=== PATIENT | female | born 1945 | race Caucasian/White ===

== ENCOUNTER → 2020-11-03 | Outpatient (CLI) | payer MEDICARE ==
--- NOTE | 2020-11-03 16:09 | US ---
EXAMINATION TYPE: US thyroid st tissue head/neck DATE OF EXAM: 11/03/2020 COMPARISON: Thyroid ultrasound April 05, 2014 CLINICAL HISTORY: E04.1 thyroid nodule. GLAND SIZE: Right Lobe: 3.8 x 1.5 x 1.3 cm Overall Parenchyma: homogenous Left Lobe: 3.6 x 1.1 x 1.6 cm Overall Parenchyma: homogeneous Isthmus Thickness: 0.2 cm NODULES RIGHT: # of nodules measured on right: 0 LEFT: # of nodules measured on left: 2 1. 0.4 X 0.3 x 0.4 cm cystic or almost completely cystic, anechoic nodule, which is wider than tall , with smooth margins, without echogenic foci. Prior size: 0.5 x 0.3 x 0.4 cm 2. 0.5 X 0.3 x 0.6 cm solid or almost completely solid, isoechoic nodule, which is wider than tall, with ill-defined margins, without echogenic foci. Prior size: 0.7 x 0.4 x 0.5 cm ISTHMUS: # of nodules measured in the isthmus: 0 Bilateral neck scanned, no evidence of lymphadenopathy. Stable homogeneous small size thyroid with 2 stable subcentimeter left thyroid nodules. IMPRESSION: As above. No new or enlarging greater than 1 cm nodules.
== END | disposition home or self-care (01) ==
LOC: RADUSWWP 15:33
PROVIDERS: ATTEND Family Medicine
DX: E04.2 Nontoxic multinodular goiter (principal)
CPT/HCPCS: 76536

== ENCOUNTER → 2020-12-01 | Outpatient (CLI) | payer MEDICARE ==
--- NOTE | 2020-12-03 11:29 | MM ---
Reason for exam: screening (asymptomatic). Last mammogram was performed 7 months ago. History: Patient is postmenopausal. Family history of breast cancer in mother at age 50. Took hormonal contraceptives for 1 year 6 months. Physical Findings: A clinical breast exam by your physician is recommended on an annual basis and results should be correlated with mammographic findings. MG 3D Screening Mammo W/Cad Bilateral CC and MLO view(s) were taken. Prior study comparison: April 21, 2020, mammogram, performed at [facility]. March 26, 2020, mammogram, performed at [facility]. March 13, 2019, mammogram, performed at [facility]. There are scattered fibroglandular densities. There is chronic nodularity in the right breast. No significant changes when compared with prior studies. ASSESSMENT: Benign, BI-RAD 2 RECOMMENDATION: Routine screening mammogram of both breasts in 1 year.
== END | disposition home or self-care (01) ==
LOC: RADMAMWWP 10:27
PROVIDERS: ATTEND Family Medicine
DX: Z12.31 Encounter for screening mammogram for malignant neoplasm of breast (principal)
CPT/HCPCS: 77063; 77067

== ENCOUNTER 2022-01-25 12:42 | Observation (INO) | payer MEDICARE ==
[2022-01-25] MEDS ORDERED: methylPREDNISolone SOD SUCCI 125 MG/2 ML VIAL IV STA (13:52)
[2022-01-25] MEDS ORDERED: ALBUTEROL NEBULIZED 2.5 MG/3 ML INHALATION STA (13:52)
[2022-01-25] MEDS ORDERED: IPRATROPIUM 0.5 MG/2.5 ML NEBU INHALATION STA (13:52)
[2022-01-25] MEDS ORDERED: SODIUM CHLORIDE 0.9% 500 ML 500 ML IV STA (13:52)
--- NOTE | 2022-01-25 14:04 | XR ---
EXAMINATION TYPE: XR chest 2V DATE OF EXAM: 01/25/2022 COMPARISON: NONE TECHNIQUE: PA and lateral views submitted. HISTORY: Cough FINDINGS: The lungs are clear and there is no pneumothorax, pleural effusion, or focal pneumonia. Somewhat co arsened interstitium. Heart size normal. No overt failure. Hypertrophic and degenerative changes spin e. Hyperinflation suggests COPD there is mild diffuse osteopenia. Atherosclerotic change aorta. Vague nodular density right upper lobe. IMPRESSION: 1. COPD correlate for chronic interstitial lung disease. Vague area of nodularity right upper lobe co uld be on the basis of superimposed structures. Short-term follow-up PA and lateral views of the ches t recommended. If the finding fails to resolve then consider CT scan of the chest.
[2022-01-25 14:35] LABS: Basophils % (A) 1 %; Eosinophils # (A) 0.1 k/uL (0-0.7); Eosinophils % (A) 2 %; HCT 48.4 % (34.0-46.0); HGB 16.3 gm/dL (11.4-16.0); Lymphocytes # (A) 1.4 k/uL (1.0-4.8); Lymphocytes % (A) 27 %; MCH 32.1 pg (25.0-35.0); MCHC 33.7 g/dL (31.0-37.0); MCV 95.4 fL (80.0-100.0); Mean Platelet Volume 7.4; Monocytes # (A) 0.4 k/uL (0-1.0); Monocytes % (A) 8 %; Neutrophils # (A) 3.2 k/uL (1.3-7.7); Neutrophils % (A) 60 %; Platelet Count 210 k/uL (150-450); RBC 5.07 m/uL (3.80-5.40); RDW 12.1 % (11.5-15.5); WBC 5.3 k/uL (3.8-10.6)
[2022-01-25 14:48] LABS: INR 0.9 (<1.2); Partial Thromboplastin Time 25.5 sec (22.0-30.0); Prothrombin Time 10.3 sec (9.0-12.0)
[2022-01-25 14:52] LABS: ALT 29 U/L (4-34); AST 36 U/L (14-36); African American GFR (CKD) >90 (>60 ml/min/1.73 sqM); Albumin 4.4 g/dL (3.5-5.0); Alkaline Phosphatase 50 U/L (38-126); Anion Gap 8 mmol/L; Blood Urea Nitrogen 10 mg/dL (7-17); Calcium 9.2 mg/dL (8.4-10.2); Carbon Dioxide 33 mmol/L (22-30); Chloride 97 mmol/L (98-107); Glucose 138 mg/dL (74-99); Magnesium 1.9 mg/dL (1.6-2.3); Non-African American GFR(CKD) >90 (>60 ml/min/1.73 sqM); Potassium 3.7 mmol/L (3.5-5.1); Sodium 138 mmol/L (137-145); Total Bilirubin 0.9 mg/dL (0.2-1.3); Total Protein 7.3 g/dL (6.3-8.2)
--- NOTE | 2022-01-25 15:38 | ED ---
General Adult HPI - General Chief complaint: Shortness of Breath Stated complaint: Fever/High BP Time Seen by Provider: 01/25/22 13:27 Source: patient, RN notes reviewed, old records reviewed Mode of arrival: ambulatory - History of Present Illness Initial comments: 76-year-old female presenting with 4 days of cough, congestion, sore throat. She does have some chest pain associated with her cough. No measured fevers. She has come in contact with several individuals who had similar illness. She had a coronavirus test at urgent care as well as chest x-ray. She has remote history of tobacco use, quit several years ago. - Related Data Allergies Allergy/AdvReac Type Severity Reaction Status Date / Time Iodinated Contrast Media Allergy Swelling Verified 01/25/22 14:38 [Iodinated Contrast Media - IV Dye] levofloxacin [From Levaquin] Allergy Swelling Verified 01/25/22 14:38 lisinopril Allergy Cough Verified 01/25/22 14:38 Review of Systems ROS Statement: Those systems with pertinent positive or pertinent negative responses have been documented in the HPI. ROS Other: All systems not noted in ROS Statement are negative. Past Medical History Past Medical History: COPD, Hypertension History of Any Multi-Drug Resistant Organisms: None Reported Past Surgical History: Hysterectomy Past Psychological History: No Psychological Hx Reported Smoking Status: Former smoker Past Alcohol Use History: None Reported Past Drug Use History: None Reported General Exam General appearance: alert, in no apparent distress Head exam: Present: atraumatic, normocephalic Eye exam: Present: normal appearance, PERRL ENT exam: Present: mucous membranes dry Neck exam: Present: normal inspection. Absent: tenderness, meningismus Respiratory exam: Present: wheezes, decreased breath sounds. Absent: respiratory distress Cardiovascular Exam: Present: regular rate, normal rhythm GI/Abdominal exam: Present: soft. Absent: distended, tenderness, guarding, rebound Extremities exam: Present: normal inspection, normal capillary refill. Absent: pedal edema, calf tenderness Neurological exam: Present: alert, oriented X3, CN II-XII intact. Absent: motor sensory deficit, reflexes normal Psychiatric exam: Present: normal affect, normal mood Skin exam: Present: warm, dry, intact. Absent: cyanosis, diaphoretic Course Vital Signs 01/25/22 01/25/22 01/25/22 13:17 14:24 14:30 Temperature 97.8 F Pulse Rate 72 77 Respiratory 20 16 28 H Rate Blood Pressure 173/82 184/77 O2 Sat by Pulse 92 L 92 L Oximetry 01/25/22 01/25/22 01/25/22 14:43 14:55 15:00 Temperature Pulse Rate 75 76 71 Respiratory 25 H Rate Blood Pressure 198/98 O2 Sat by Pulse 88 L Oximetry 01/25/22 15:59 Temperature Pulse Rate Respiratory Rate Blood Pressure O2 Sat by Pulse 93 L Oximetry EKG Findings - EKG Comments: EKG Findings:: EKG: Sinus rhythm, low voltage, rate of 60, NV interval 146, QRS duration 85, QTC [address] segment elevation. Medical Decision Making - Medical Decision Making 76-year-old female presents for evaluation of increased cough and dyspnea over the past several days. There was initial concern for either coronal virus or influenza. She does test negative for both of these viruses. Chest x-ray s howing COPD. She has a remote history of tobacco use. Laboratory testing is unremarkable. Patient does require supplemental oxygen in the emergency department. She will be admitted for COPD exacerbation. Case discussed with [facility]. - Lab Data Result diagrams: 01/25/22 14:10 01/25/22 14:10 Lab Results 01/25/22 01/25/22 01/25/22 Range/Units 13:27 13:27 14:10 WBC 5.3 (3.8-10.6) k/uL RBC 5.07 (3.80-5.40) m/uL Hgb 16.3 H (11.4-16.0) gm/dL Hct 48.4 H (34.0-46.0) % MCV 95.4 (80.0-100.0) fL MCH 32.1 (25.0-35.0) pg MCHC 33.7 (31.0-37.0) g/dL RDW 12.1 (11.5-15.5) % Plt Count 210 (150-450) k/uL MPV 7.4 Neutrophils % 60 % Lymphocytes % 27 % Monocytes % 8 % Eosinophils % 2 % Basophils % 1 % Neutrophils # 3.2 (1.3-7.7) k/uL Lymphocytes # 1.4 (1.0-4.8) k/uL Monocytes # 0.4 (0-1.0) k/uL Eosinophils # 0.1 (0-0.7) k/uL Basophils # 0.0 (0-0.2) k/uL PT (9.0-12.0) sec INR (<1.2) APTT (22.0-30.0) sec D-Dimer (<0.60) mg/L FEU Sodium (137-145) mmol/L Potassium (3.5-5.1) mmol/L Chloride (98-107) mmol/L Carbon Dioxide (22-30) mmol/L Anion Gap mmol/L BUN (7-17) mg/dL Creatinine (0.52-1.04) mg/dL Est GFR (CKD-EPI)AfAm (>60 ml/min/1.73 sqM) Est GFR (CKD-EPI)NonAf (>60 ml/min/1.73 sqM) Glucose (74-99) mg/dL Plasma Lactic Acid Dameon (0.7-2.0) mmol/L Calcium (8.4-10.2) mg/dL Magnesium (1.6-2.3) mg/dL Total Bilirubin (0.2-1.3) mg/dL AST (14-36) U/L ALT (4-34) U/L Alkaline Phosphatase (38-126) U/L Troponin I (0.000-0.034) ng/mL Total Protein (6.3-8.2) g/dL Albumin (3.5-5.0) g/dL Coronavirus (PCR) Not Detected (Not Detectd) Influenza Type A RNA Not Detected (Not Detectd) Influenza Type B (PCR) Not Detected (Not Detectd) 01/25/22 01/25/22 01/25/22 Range/Units 14:10 14:10 14:10 WBC (3.8-10.6) k/uL RBC (3.80-5.40) m/uL Hgb (11.4-16.0) gm/dL Hct (34.0-46.0) % MCV (80.0-100.0) fL MCH (25.0-35.0) pg MCHC (31.0-37.0) g/dL RDW (11.5-15.5) % Plt Count (150-450) k/uL MPV Neutrophils % % Lymphocytes % % Monocytes % % Eosinophils % % Basophils % % Neutrophils # (1.3-7.7) k/uL Lymphocytes # (1.0-4.8) k/uL Monocytes # (0-1.0) k/uL Eosinophils # (0-0.7) k/uL Basophils # (0-0.2) k/uL PT 10.3 (9.0-12.0) sec INR 0.9 (<1.2) APTT 25.5 (22.0-30.0) sec D-Dimer (<0.60) mg/L FEU Sodium 138 (137-145) mmol/L Potassium 3.7 (3.5-5.1) mmol/L Chloride 97 L (98-107) mmol/L Carbon Dioxide 33 H (22-30) mmol/L Anion Gap 8 mmol/L BUN 10 (7-17) mg/dL Creatinine 0.50 L (0.52-1.04) mg/dL Est GFR (CKD-EPI)AfAm >90 (>60 ml/min/1.73 sqM) Est GFR (CKD-EPI)NonAf >90 (>60 ml/min/1.73 sqM) Glucose 138 H (74-99) mg/dL Plasma Lactic Acid Dameon 0.8 (0.7-2.0) mmol/L Calcium 9.2 (8.4-10.2) mg/dL Magnesium 1.9 (1.6-2.3) mg/dL Total Bilirubin 0.9 (0.2-1.3) mg/dL AST 36 (14-36) U/L ALT 29 (4-34) U/L Alkaline Phosphatase 50 (38-126) U/L Troponin I (0.000-0.034) ng/mL Total Protein 7.3 (6.3-8.2) g/dL Albumin 4.4 (3.5-5.0) g/dL Coronavirus (PCR) (Not Detectd) Influenza Type A RNA (Not Detectd) Influenza Type B (PCR) (Not Detectd) 01/25/22 01/25/22 Range/Units 14:10 14:10 WBC (3.8-10.6) k/uL RBC (3.80-5.40) m/uL Hgb (11.4-16.0) gm/dL Hct (34.0-46.0) % MCV (80.0-100.0) fL MCH (25.0-35.0) pg MCHC (31.0-37.0) g/dL RDW (11.5-15.5) % Plt Count (150-450) k/uL MPV Neutrophils % % Lymphocytes % % Monocytes % % Eosinophils % % Basophils % % Neutrophils # (1.3-7.7) k/uL Lymphocytes # (1.0-4.8) k/uL Monocytes # (0-1.0) k/uL Eosinophils # (0-0.7) k/uL Basophils # (0-0.2) k/uL PT (9.0-12.0) sec INR (<1.2) APTT (22.0-30.0) sec D-Dimer 0.46 (<0.60) mg/L FEU Sodium (137-145) mmol/L Potassium (3.5-5.1) mmol/L Chloride (98-107) mmol/L Carbon Dioxide (22-30) mmol/L Anion Gap mmol/L BUN (7-17) mg/dL Creatinine (0.52-1.04) mg/dL Est GFR (CKD-EPI)AfAm (>60 ml/min/1.73 sqM) Est GFR (CKD-EPI)NonAf (>60 ml/min/1.73 sqM) Glucose (74-99) mg/dL Plasma Lactic Acid Dameon (0.7-2.0) mmol/L Calcium (8.4-10.2) mg/dL Magnesium (1.6-2.3) mg/dL Total Bilirubin (0.2-1.3) mg/dL AST (14-36) U/L ALT (4-34) U/L Alkaline Phosphatase (38-126) U/L Troponin I <0.012 (0.000-0.034) ng/mL Total Protein (6.3-8.2) g/dL Albumin (3.5-5.0) g/dL Coronavirus (PCR) (Not Detectd) Influenza Type A RNA (Not Detectd) Influenza Type B (PCR) (Not Detectd) Disposition Clinical Impression: Acute exacerbation of chronic obstructive pulmonary disease Disposition: ADMITTED IP TO THIS HOSP Condition: Stable Is patient prescribed a controlled substance at d/c from ED?: No Referrals: Arpita Cardenas MD [Primary Care Provider] - 1-2 days Decision to Admit Reason: Admit from EC Decision Date: 01/25/22 Decision Time: 16:40
[2022-01-25] MEDS ORDERED: AZITHROMYCIN 500 MG TAB PO SCH (17:00)
[2022-01-25] MEDS: methylPREDNISolone SOD SUCCI 40 MG/ML 1 ML VIAL IV SCH (17:34)
[2022-01-25] MEDS: IPRATROPIUM-ALBUTEROL 3 ML NEB INHALATION SCH ×2 (19:12)
[2022-01-25 22:29] LABS: Glucose,Whole Blood 317 mg/dL (75-99)
[2022-01-25] MEDS ORDERED: cloNIDine HCL 0.2 MG TAB PO STA (23:18)
[2022-01-25] MEDS: ACETAMINOPHEN TAB 325 MG TAB PO PRN (23:34)
[2022-01-26] MEDS ORDERED: BENZOCAINE/MENTHOL LOZENG 1 EACH LOZENGE MUCOUS MEM ONE (00:05)
[2022-01-26 07:30] LABS: Glucose,Whole Blood 332 mg/dL (75-99)
[2022-01-26] MEDS: IPRATROPIUM-ALBUTEROL 3 ML NEB INHALATION SCH ×2 (08:21→11:40)
[2022-01-26 08:22] VITALS: RESP 18
[2022-01-26] MEDS: methylPREDNISolone SOD SUCCI 40 MG/ML 1 ML VIAL IV SCH (08:38)
[2022-01-26] MEDS ORDERED: BENZONATATE 100 MG CAP PO PRN (09:48)
[2022-01-26] MEDS ORDERED: BENZOCAINE/MENTHOL LOZENG 1 EACH LOZENGE MUCOUS MEM PRN (10:15)
[2022-01-26 11:43] LABS: Glucose,Whole Blood 269 mg/dL (75-99)
[2022-01-26] MEDS ORDERED: INSULIN ASPART (NovoLOG) 100 UNIT/ML VIAL SQ SCH (12:30)
--- NOTE | 2022-01-26 13:39 | P.PRLE ---
THIS HISTORY AND PHYSICAL WAS COMPLETED ON 01/25/2022 -H&P ORIGINAL SHOWS UP UNDER RADIOLOGY. History of Present Illness Chief Complaint: Shortness of breath and feeling tired Patient is a 76-year-old female with a past medical history significant for type 2 diabetes mellitus on oral medication, essential hypertension and former smoker that presents to the hospital complaining of lethargic and short of breath. She apparently started a new job at [employer] a few weeks ago which he first contributed towards. Today she had a fever 101 approximately 4:00 with some subjective chills however denies any nausea, vomiting, abdominal discomfort or diarrhea. Patient is a former smoker for approximately 20-25 years smoked half a pack a day. She denies any significant phlegm production and has not been diagnosed with COPD in the past however she states multiple doctors have told her that. No formal diagnosis has been made per pulmonary function tests. In the emergency department she was found to be hypotensive 198/98, saturations 93% on 2 L nasal cannula. CBC and BMP reviewed unremarkable except for hemoglobin 16.3, and bicarb 33. Medications and Allergies Allergies Allergy/AdvReac Type Severity Reaction Status Date / Time Iodinated Contrast Media Allergy Swelling Verified 01/25/22 14:38 [Iodinated Contrast Media - IV Dye] levofloxacin [From Levaquin] Allergy Swelling Verified 01/25/22 14:38 lisinopril Allergy Cough Verified 01/25/22 14:38 Physical Exam Gen. patient is awake alert oriented 3 currently wearing 2 L nasal cannula Cardio normal S1/S2 no murmurs appreciated Respiratory wheezing appreciated mild bilaterally on expiration mainly, bilateral air entry Abdomen soft, nontender Extremities no pitting edema Psych patient is normal mood Assessment and Plan Assessment: Assessment: #1 acute hypoxic respiratory distress secondary to underlying possible COPD? #2 nodularity on x-ray noted follow-up needed #3 diabetes mellitus [id number]-[id number] type II #4 essential hypertension Plan: -Admit to medicine for close monitoring -Aspiration/fall precaution -Continue with IV methylprednisolone 40 daily -Scheduled to 3 times a day DuoNeb's -Influenza and: Negative -Chest x-ray noted radiologist recommending PA/lateral view to evaluate for possible nodularity? -DVT prophylaxis Lovenox daily -Disposition despite discharge once respiratory distress improves
[2022-01-26] MEDS: ACETAMINOPHEN TAB 325 MG TAB PO PRN (14:19)
[2022-01-26 14:39] VITALS: BP 153/76; PULSE 89; TEMP 98.1
--- NOTE | 2022-01-26 15:51 | P.DS ---
Providers Date of admission: 01/25/22 16:43 Expected date of discharge: 01/26/22 Attending physician: Royer Briceño MD Primary care physician: Arpita Cardenas Hospital Course: Discharge Diagnosis: Acute hypoxic and hypercapnic respiratory distress secondary to COPD exacerbation, Patient will need to follow-up with pulmonary for PFTs as well as further evaluation of right upper lobe nodularity noted on x-ray. Patient discharged home with prednisone, Ventolin inhaler, and Zithromax. Right upper lobe nodularity, patient to follow-up outpatient with pulmonary for further evaluation Hypertension Type II dfy-[id number] diabetes mellitus Long-standing history of nicotine use Hospital Course: Patient is a very pleasant 76-year-old female with a past medical history of hypertension, type II aye-ghsswpc-ohtniteaj diabetes mellitus, and long-standing history of nicotine use. She presented to the hospital with a chief complaint of feeling generalized lethargy/weakness and having increased shortness of breath after starting her new job at [employer] a few weeks ago. She was seen and fully evaluated in the emergency department. Lab work was completed. CBC revealing polycythemia with hemoglobin of 16.3 and hematocrit of 48.4 and BMP revealing hypercarbia with CO2 of 33. Influenza A and influenza B and coronavirus PCR is all negative. Troponin less than 0.012. D-dimer 0.46. Chest x-ray was completed revealing hyperinflation consistent with COPD and vague area of nodularity to right upper lobe. EKG showing normal sinus rhythm at 60 bpm with no noted T-wave or ST abnormalities. Patient was admitted under our services and monitored throughout the night. Patient was started on steroids and breathing treatments. By morning patient reports feeling completely better at this time. Patient on room air with SpO2 of 94%. Upon ambulation throughout entire unit the lowest patient's oxygen saturation dropped to was 89% on room air. Patient is medically stable for discharge at this time. Patient was instructed she will need to follow up with her PCP as well as pulmonology upon discharge. Patient will need to follow-up with pulmonary for PFTs as well as further evaluation of right upper lobe nodularity noted on x- ray. Physical examination: Patient seen and examined at bedside. Vital signs reviewed and stable. General: Nontoxic, no distress and appears stated age. Derm: Skin warm and dry, normal coloration for ethnicity. Head: Atraumatic, normocephalic and symmetric. Eyes: EOMs intact, no lid lag, and anicteric sclera Mouth: no lip lesions, mucus membranes moist Cardiovascular: regular rate and rhythm with normal S1S2, no murmur, positive posterior tibial pulses bilaterally, and cap refill < 2 seconds. Lungs: Respirations even, regular, and unlabored on room air. Lungs CTA bilaterally with the exception of soft diffuse expiratory wheezes. There is no rales, rhonchi, or crackles present. No accessory muscle usage. Abdominal: soft, nontender to palpation, no guarding, no appreciable organomegaly Ext: ROM intact. No gross muscle atrophy, no edema, no contractures Neuro: Speech clear, face symmetrical and CN II-XII grossly intact with no noted focal neuro deficits Psych: Alert and oriented to person, place, time, and situation. Appropriate and pleasant affect. A total of 39 minutes of time were spent preparing this complex discharge summary. Patient Condition at Discharge: Stable Plan - Discharge Summary Discharge Rx Participant: No New Discharge Prescriptions: New predniSONE 50 mg PO DAILY 5 Days #5 tablet Albuterol Inhaler [Ventolin Hfa Inhaler] 2 puff INHALATION RT-QID PRN #8 gm PRN Reason: Shortness Of Breath Or Wheezing Azithromycin [Zithromax] 500 mg PO DAILY@1700 4 Days #4 tab Continue Cholecalciferol [Vitamin D3 (25 Mcg = 1000 Iu)] 25 mcg PO DAILY Ascorbic Acid/Collagen Hydr [Collagen Plus Vit C Capsule] 1 cap PO DAILY hydroCHLOROthiazide [Hydrodiuril] 25 mg PO DAILY carvediloL [Coreg] 6.25 mg PO BID Glimepiride [Amaryl] 4 mg PO AC-BID Benzonatate [Benzonatate Perle] 200 mg PO TID PRN PRN Reason: Cough Cyanocobalamin (Vitamin B-12) [Vitamin B-12] 1,000 mcg PO DAILY 1 tab PO DAILY Ibuprofen [Motrin Ib] 400 mg PO HS PRN PRN Reason: Pain Immun Support 1 tab PO TID Discontinued Amoxic-Pot Clav 875-125Mg [Augmentin 875-125] 1 tab PO Q12HR Discharge Medication List 1 tab PO DAILY 01/25/22 [History] Ascorbic Acid/Collagen Hydr [Collagen Plus Vit C Capsule] 1 cap PO DAILY 01/25/22 [History] Benzonatate [Benzonatate Perle] 200 mg PO TID PRN 01/25/22 [History] Cholecalciferol [Vitamin D3 (25 Mcg = 1000 Iu)] 25 mcg PO DAILY 01/25/22 [History] Cyanocobalamin (Vitamin B-12) [Vitamin B-12] 1,000 mcg PO DAILY 01/25/22 [History] Glimepiride [Amaryl] 4 mg PO AC-BID 01/25/22 [History] Ibuprofen [Motrin Ib] 400 mg PO HS PRN 01/25/22 [History] Immun Support 1 tab PO TID 01/25/22 [History] carvediloL [Coreg] 6.25 mg PO BID 01/25/22 [History] hydroCHLOROthiazide [Hydrodiuril] 25 mg PO DAILY 01/25/22 [History] Albuterol Inhaler [Ventolin Hfa Inhaler] 2 puff INHALATION RT-QID PRN #8 gm 01/26/22 [Rx] Azithromycin [Zithromax] 500 mg PO DAILY@1700 4 Days #4 tab 01/26/22 [Rx] predniSONE 50 mg PO DAILY 5 Days #5 tablet 01/26/22 [Rx] Follow up Appointment(s)/Referral(s): Arpita Cardenas MD [Primary Care Provider] - 1-2 days Bryan Shields MD [STAFF PHYSICIAN] - 02/21/22 2:30 pm (Will need to schedule follow-up appointment for pulmonary function tests and further evaluation) Patient Instructions/Handouts: COPD (Chronic Obstructive Pulmonary Disease) (DC), How Your Lungs Work (DC), Chronic Lung Disease and Infection Prevention (DC) Activity/Diet/Wound Care/Special Instructions: Activity: As tolerated. Take breaks as needed. Diet: Heart healthy and carb consistent diet. Avoid salts, or foods with hidden salts such as canned or boxed foods and frozen dinners. Extra salt makes your heart work harder and traps the fluid in your body for longer. Special Instructions: Take all of your medications as directed and remember to keep all of your doctor's appointments and follow-up as needed. You will need to follow-up with Dr. Shields, grain inspector for further evaluation of your likely underlying COPD. You will need pulmonary function tests and have further evaluation of the possible nodule noted on x-ray. Thank you for allowing us to participate in your care, it was truly a pleasure having you for our patient!!! Discharge Disposition: HOME SELF-CARE
[2022-01-26] MEDS ORDERED: carvediloL 6.25 MG TAB PO SCH (17:30)
[2022-01-27] MEDS ORDERED: CAPSU PO SCH (09:00)
[2022-01-27] MEDS ORDERED: COLLAGEN HYDR PO SCH (09:00)
[2022-01-27] MEDS ORDERED: hydroCHLOROthiazide 25 MG TAB PO SCH (09:00)
[2022-01-27] MEDS ORDERED: CHOLECALCIFEROL 25 MCG (1000 IU) TABLET PO SCH (09:00)
[2022-01-27] MEDS ORDERED: [UNRECOGNIZED DRUG - OTHER] PO SCH (09:00)
[2022-01-27] MEDS ORDERED: CYANOCOBALAMIN 500 MCG TAB PO SCH (09:00)
[2022-01-27] MEDS ORDERED: ASCORBIC ACID PO SCH (09:00)
== END 2022-01-26 16:37 | disposition home or self-care (01) ==
LOC: EC 12:42 → 6NMEDSUR 16:43
PROVIDERS: ADMIT Internal Medicine; ATTEND Internal Medicine
DX: J44.1 Chronic obstructive pulmonary disease with (acute) exacerbation (principal); I10 Essential (primary) hypertension; E11.9 Type 2 diabetes mellitus without complications; D75.1 Secondary polycythemia; R91.8 Other nonspecific abnormal finding of lung field; Z20.822 Contact with and (suspected) exposure to COVID-19; Z79.84 Long term (current) use of oral hypoglycemic drugs; Z79.899 Other long term (current) drug therapy; Z88.1 Allergy status to other antibiotic agents; Z91.041 Radiographic dye allergy status; Z88.8 Allergy status to other drugs, medicaments and biological substances; Z87.891 Personal history of nicotine dependence; Z90.710 Acquired absence of both cervix and uterus
CPT/HCPCS: 96376 ×2; 96361; 96374; 99285; 36415; 94640 ×4; 93005; 85379; 80053; 83605; 83735; 84484; 85025; 85610; 85730; 87502; 87635; 71046; G0378 ×2; J2920 ×2; J2930

== ENCOUNTER → 2022-01-27 | Outpatient (CLI) | payer MEDICARE ==
--- NOTE | 2022-01-25 16:57 | P.HPIM ---
History of Present Illness Chief Complaint: Shortness of breath and feeling tired Patient is a 76-year-old female with a past medical history significant for type 2 diabetes mellitus on oral medication, essential hypertension and former smoker that presents to the hospital complaining of lethargic and short of breath. She apparently started a new job at [email or web address] a few weeks ago which he first contributed towards. Today she had a fever 101 approximately 4:00 with some subjective chills however denies any nausea, vomiting, abdominal discomfort or diarrhea. Patient is a former smoker for approximately 20-25 years smoked half a pack a day. She denies any significant phlegm production and has not been diagnosed with COPD in the past however she states multiple doctors have told her that. No formal diagnosis has been made per pulmonary function tests. In the emergency department she was found to be hypotensive 198/98, saturations 93% on 2 L nasal cannula. CBC and BMP reviewed unremarkable except for hemoglobin 16.3, and bicarb 33. Medications and Allergies Allergies Allergy/AdvReac Type Severity Reaction Status Date / Time Iodinated Contrast Media Allergy Swelling Verified 01/25/22 14:38 [Iodinated Contrast Media - IV Dye] levofloxacin [From Levaquin] Allergy Swelling Verified 01/25/22 14:38 lisinopril Allergy Cough Verified 01/25/22 14:38 Physical Exam Gen. patient is awake alert oriented 3 currently wearing 2 L nasal cannula Cardio normal S1/S2 no murmurs appreciated Respiratory wheezing appreciated mild bilaterally on expiration mainly, bilateral air entry Abdomen soft, nontender Extremities no pitting edema Psych patient is normal mood Assessment and Plan Assessment: Assessment: #1 acute hypoxic respiratory distress secondary to underlying possible COPD? #2 nodularity on x-ray noted follow-up needed #3 diabetes mellitus eor-xmfoikv-jprzwlucl type II #4 essential hypertension Plan: -Admit to medicine for close monitoring -Aspiration/fall precaution -Continue with IV methylprednisolone 40 daily -Scheduled to 3 times a day DuoNeb's -Influenza and: Negative -Chest x-ray noted radiologist recommending PA/lateral view to evaluate for possible nodularity? -DVT prophylaxis Lovenox daily -Disposition despite discharge once respiratory distress improves
--- NOTE | 2022-01-30 11:39 | MM ---
Reason for exam: screening (asymptomatic). Last mammogram was performed 1 year and 2 months ago. History: Patient is postmenopausal. Family history of breast cancer in mother at age 50. Took hormonal contraceptives for 1 year 6 months. Physical Findings: A clinical breast exam by your physician is recommended on an annual basis and results should be correlated with mammographic findings. MG 3D Screening Mammo W/Cad Bilateral CC and MLO view(s) were taken. Prior study comparison: December 01, 2020, bilateral MG 3d screening mammo w/cad. April 21, 2020, mammogram, performed at [facility]. There are scattered fibroglandular densities. Stable benign calcifications. There is no discrete abnormality. No significant changes when compared with prior studies. ASSESSMENT: Benign, BI-RAD 2 RECOMMENDATION: Routine screening mammogram of both breasts in 1 year.
== END | disposition home or self-care (01) ==
LOC: RADMAMWWP 11:36
PROVIDERS: ATTEND Family Medicine
DX: Z12.31 Encounter for screening mammogram for malignant neoplasm of breast (principal)
CPT/HCPCS: 77063; 77067

== ENCOUNTER 2022-01-29 08:03 | Observation (INO) | payer MEDICARE ==
[2022-01-29 08:08] VITALS: RESP 18
[2022-01-29] MEDS ORDERED: IPRATROPIUM-ALBUTEROL 3 ML NEB INHALATION STA ×2 (08:32→09:24)
[2022-01-29] MEDS ORDERED: predniSONE 20 MG TAB PO STA (08:32)
[2022-01-29 08:41] LABS: Basophils # (A) 0.1 k/uL (0-0.2); Basophils % (A) 1 %; Eosinophils # (A) 0.1 k/uL (0-0.7); Eosinophils % (A) 1 %; HCT 44.7 % (34.0-46.0); Lymphocytes % (A) 27 %; MCHC 33.5 g/dL (31.0-37.0); MCV 95.7 fL (80.0-100.0); Mean Platelet Volume 7.6; Monocytes # (A) 0.7 k/uL (0-1.0); Monocytes % (A) 9 %; Neutrophils # (A) 4.6 k/uL (1.3-7.7); Neutrophils % (A) 62 %; Platelet Count 274 k/uL (150-450); RBC 4.67 m/uL (3.80-5.40); RDW 12.1 % (11.5-15.5); WBC 7.4 k/uL (3.8-10.6)
[2022-01-29 08:51] LABS: Partial Thromboplastin Time 22.2 sec (22.0-30.0); Prothrombin Time 10.7 sec (9.0-12.0)
[2022-01-29 08:58] LABS: ALT 23 U/L (4-34); AST 25 U/L (14-36); African American GFR (CKD) >90 (>60 ml/min/1.73 sqM); Alkaline Phosphatase 49 U/L (38-126); Anion Gap 7 mmol/L; Blood Urea Nitrogen 14 mg/dL (7-17); Calcium 9.3 mg/dL (8.4-10.2); Carbon Dioxide 34 mmol/L (22-30); Chloride 97 mmol/L (98-107); Glucose 190 mg/dL (74-99); Magnesium 1.8 mg/dL (1.6-2.3); Non-African American GFR(CKD) >90 (>60 ml/min/1.73 sqM); Potassium 3.1 mmol/L (3.5-5.1); Sodium 138 mmol/L (137-145)
--- NOTE | 2022-01-29 09:17 | XR ---
EXAMINATION TYPE: XR chest 2V DATE OF EXAM: 01/29/2022 COMPARISON: Chest x-ray 4 days ago HISTORY: History of hypertension with shortness of breath TECHNIQUE: Frontal and lateral views of the chest are obtained. FINDINGS: There are chronic parenchymal changes bilaterally without suspicious new focal air space o pacity, pleural effusion, or pneumothorax seen. The cardiac silhouette size is stable and within nor mal limits. The osseous structures are intact. Possible spiculated nodule right upper lung. IMPRESSION: Chronic emphysematous change without acute pulmonary process. Cannot exclude underlying spiculated nodule similar to prior. Nonemergent CT follow-up advised. No significant change from prio r.
--- NOTE | 2022-01-29 11:26 | CT ---
EXAMINATION TYPE: CT chest wo con DATE OF EXAM: 01/29/2022 COMPARISON: Chest x-ray earlier today HISTORY: Dyspnea CT DLP: 395.7 mGycm. Automated Exposure Control for Dose Reduction was Utilized. TECHNIQUE: CT scan of the thorax is performed without IV contrast. FINDINGS: LUNGS: Mild to moderate underlying emphysematous changer with 1.3 x 0.7 cm scarlike opacity in the ri ght upper lobe corresponding to area of x-ray concern axial image 19. No pleural effusion or pneumoth orax seen bilaterally. MEDIASTINUM: Lack of IV contrast is noted to limit evaluation for mediastinal and especially hilar a denopathy. There are no definitive greater than 1 cm mediastinal lymph nodes. No cardiomegaly or pe ricardial effusion is seen. Moderate to severe three-vessel coronary artery calcification. OTHER: There is near 1.0 cm low dense lesion in the hepatic dome image 44 favors benign thin-walled c yst, similar lesion seen anteriorly axial image 49. IMPRESSION: Mild to borderline moderate underlying emphysematous change without suspicious acute pulm onary process. Area of concern on x-rays could reflect focal scarring versus spiculated nodule. Follo w-up PET/CT is advised to further evaluate if old outside x-ray or CT cannot be obtained to document stability.
[2022-01-29] MEDS ORDERED: hydrALAZINE HCL 20 MG/ML 1 ML VIAL IVP STA (11:53)
[2022-01-29] MEDS ORDERED: POTASSIUM CHLORIDE ER 20 MEQ TAB.ER PO STA (11:54)
[2022-01-29] MEDS ORDERED: ONDANSETRON 4 MG/2 ML VIAL IVP STA (12:44)
--- NOTE | 2022-01-29 12:44 | ED ---
General Adult HPI - General Chief complaint: Shortness of Breath Stated complaint: High BP, SOB Time Seen by Provider: 01/29/22 08:17 Source: patient, RN notes reviewed, old records reviewed Mode of arrival: ambulatory Limitations: no limitations - History of Present Illness Initial comments: Patient is a 76-year-old female with past medical history remarkable for COPD, diabetes, hypertension who presents to [facility] complaining of continued shortness of breath as well as hypoxia home. Patient took her pulse ox at home and is found to be an 85%. Recently was discharged for a COPD exacerbation. He is not requiring oxygen previously. States she is continuing to have some wheezing as well as upper respiratory symptoms. She is concerned that she may have COVID-19. She denies any sick contacts. She is fully vaccinated with a booster. Was vaccinated for influenza as well. Endorses a productive cough of greenish mucus. Denies any lower extremity swelling. Denies any history of heart failure. Denies any orthopnea. Endorses exertional dyspnea. He was discharged home, however states she feels she did not improve. Presents over concern for worsening respiratory symptoms as well as hypoxia. - Related Data Home Medications Medication Instructions Recorded Confirmed 1 tab PO DAILY 01/25/22 01/29/22 Ascorbic Acid/Collagen Hydr 1 cap PO DAILY 01/25/22 01/29/22 [Collagen Plus Vit C Capsule] Benzonatate [Benzonatate Perle] 200 mg PO TID PRN 01/25/22 01/29/22 Cholecalciferol [Vitamin D3 (25 25 mcg PO DAILY 01/25/22 01/29/22 Mcg = 1000 Iu)] Cyanocobalamin (Vitamin B-12) 1,000 mcg PO DAILY 01/25/22 01/29/22 [Vitamin B-12] Glimepiride [Amaryl] 4 mg PO AC-BID 01/25/22 01/29/22 Ibuprofen [Motrin Ib] 400 mg PO HS PRN 01/25/22 01/29/22 carvediloL [Coreg] 6.25 mg PO BID 01/25/22 01/29/22 hydroCHLOROthiazide [Hydrodiuril] 25 mg PO DAILY 01/25/22 01/29/22 Azithromycin [Zithromax] 500 mg PO DAILY 01/29/22 01/29/22 Immune Support 1 tab PO TID 01/29/22 01/29/22 Previous Rx's Medication Instructions Recorded Albuterol Inhaler [Ventolin Hfa 2 puff INHALATION RT-QID PRN #8 gm 01/26/22 Inhaler] predniSONE 50 mg PO DAILY 5 Days #5 tablet 01/26/22 Allergies Allergy/AdvReac Type Severity Reaction Status Date / Time Iodinated Contrast Media Allergy Swelling Verified 01/29/22 13:37 [Iodinated Contrast Media - IV Dye] levofloxacin [From Levaquin] Allergy Swelling Verified 01/29/22 13:37 lisinopril Allergy Cough Verified 01/29/22 13:37 Review of Systems ROS Statement: Those systems with pertinent positive or pertinent negative responses have been documented in the HPI. Review of Systems: CONST: Denies fever EYES: Denies blurry vision ENT: Endorses nasal congestion C/V: Denies Chest pain RESP: Endorses shortness of breath GI: Denies abdominal pain : Denies dysuria SKIN: Denies rash. MSK: Denies joint pain. NEURO: Denies headache ROS Other: All systems not noted in ROS Statement are negative. Past Medical History Past Medical History: COPD, Diabetes Mellitus, Hypertension Additional Past Medical History / Comment(s): macular degeneration History of Any Multi-Drug Resistant Organisms: None Reported Past Surgical History: Hysterectomy Past Psychological History: No Psychological Hx Reported Smoking Status: Former smoker Past Alcohol Use History: None Reported Past Drug Use History: None Reported - Past Family History Mother Family Medical History: Cancer Additional Family Medical History / Comment(s): breast, uterine, thyroid cancer. Father History Unknown: Yes General Exam - General Exam Comments Initial Comments: General: Appears in no acute distress. HEAD: Normal with no signs of head trauma. EYES: PERRLA, EOMI, conjunctiva normal, no discharge. ENT: Hearing grossly intact, normal oropharynx. RESPIRATORY: Mild and expiratory wheezing bilaterally. No increased work of breathing. Hypoxic on room air to 88%. C/V: Regular rate and rhythm. S1 and S2 auscultated, no edema, peripheral pulses 2+ and intact throughout ABD: Abd is soft, nontender, nondistended EXT: Normal range of motion, no obvious deformity SKIN: No rashes or lesions observed on exposed skin. NEURO: Alert and oriented 4. Limitations: no limitations Course Vital Signs 0401/29/22 01/29/22 08:04 08:31 08:48 Temperature 97.1 F L Pulse Rate 69 68 70 Respiratory 18 18 18 Rate Blood Pressure 195/81 196/80 O2 Sat by Pulse 91 L 93 L Oximetry 01/29/22 01/29/22 01/29/22 08:57 09:00 10:00 Temperature Pulse Rate 70 67 68 Respiratory 18 22 22 Rate Blood Pressure 196/80 189/90 O2 Sat by Pulse 96 96 Oximetry 01/29/22 01/29/22 01/29/22 10:08 10:18 11:00 Temperature Pulse Rate 68 70 61 Respiratory 18 18 18 Rate Blood Pressure 197/103 O2 Sat by Pulse 92 L Oximetry 01/29/22 13:20 Temperature Pulse Rate 78 Respiratory Rate Blood Pressure 195/104 O2 Sat by Pulse 96 Oximetry Medical Decision Making - Medical Decision Making Based on the patient's presentation physical exam, I'm concerned for COPD exacerbation but other possible etiology for dyspnea at this time. We'll obtain a cardiopulmonary workup in addition to Covid and influenza swabs. She was in agreement this plan. She appears to be having a mild COPD exacerbation and will be given steroids as well as breathing treatments. Patient was in agreement this plan. Patient is mildly hypertensive but does also worked up and she'll be observed and treated if she continues to be hypertensive. EKG showed no signs of acute ischemia. Laboratory studies were remarkable for a d-dimer within normal limits. Carbon dioxide is mildly elevated 34. Patient is hypokalemic at 3.1 which is replenished. Troponin is negative. BNP is within normal limits. Covid and influenza negative. Chest x-ray shows chronic emphysematous changes without acute pulmonary process. There appears to be a small nodule that is unchanged from prior chest x-ray. As the patient remains mildly hypoxic, despite improved wheezing bilaterally, I did recommend that we obtain a CT chest with contrast and she was in agreement this plan. CT chest revealed emphysematous changes without suspicious acute pulmonary process. There is scarring versus possible spiculated nodule. I discussed with the patient the findings of the CT, including the spiculated nodule. She exposed understanding. Due to her hypoxia on room air that is new, I would like to admit her to the hospital. She was in agreement this plan. I did speak with the admitting physician, Dr. Ayon who accepted the patient. Patient was admitted in stable condition. We'll continue to treat for COPD. - Lab Data Result diagrams: 01/29/22 08:36 01/29/22 08:36 Lab Results 01/29/22 01/29/22 01/29/22 Range/Units 08:36 08:36 08:36 WBC 7.4 (3.8-10.6) k/uL RBC 4.67 (3.80-5.40) m/uL Hgb 15.0 (11.4-16.0) gm/dL Hct 44.7 (34.0-46.0) % MCV 95.7 (80.0-100.0) fL MCH 32.0 (25.0-35.0) pg MCHC 33.5 (31.0-37.0) g/dL RDW 12.1 (11.5-15.5) % Plt Count 274 (150-450) k/uL MPV 7.6 Neutrophils % 62 % Lymphocytes % 27 % Monocytes % 9 % Eosinophils % 1 % Basophils % 1 % Neutrophils # 4.6 (1.3-7.7) k/uL Lymphocytes # 2.0 (1.0-4.8) k/uL Monocytes # 0.7 (0-1.0) k/uL Eosinophils # 0.1 (0-0.7) k/uL Basophils # 0.1 (0-0.2) k/uL PT 10.7 (9.0-12.0) sec INR 1.0 (<1.2) APTT 22.2 (22.0-30.0) sec D-Dimer (<0.60) mg/L FEU Sodium 138 (137-145) mmol/L Potassium 3.1 L (3.5-5.1) mmol/L Chloride 97 L (98-107) mmol/L Carbon Dioxide 34 H (22-30) mmol/L Anion Gap 7 mmol/L BUN 14 (7-17) mg/dL Creatinine 0.59 (0.52-1.04) mg/dL Est GFR (CKD-EPI)AfAm >90 (>60 ml/min/1.73 sqM) Est GFR (CKD-EPI)NonAf >90 (>60 ml/min/1.73 sqM) Glucose 190 H (74-99) mg/dL Calcium 9.3 (8.4-10.2) mg/dL Magnesium 1.8 (1.6-2.3) mg/dL Total Bilirubin 1.0 (0.2-1.3) mg/dL AST 25 (14-36) U/L ALT 23 (4-34) U/L Alkaline Phosphatase 49 (38-126) U/L Troponin I (0.000-0.034) ng/mL NT-Pro-B Natriuret Pep pg/mL Total Protein 7.0 (6.3-8.2) g/dL Albumin 4.0 (3.5-5.0) g/dL Coronavirus (PCR) (Not Detectd) Influenza Type A RNA (Not Detectd) Influenza Type B (PCR) (Not Detectd) 01/29/22 01/29/22 01/29/22 Range/Units 08:36 08:36 08:36 WBC (3.8-10.6) k/uL RBC (3.80-5.40) m/uL Hgb (11.4-16.0) gm/dL Hct (34.0-46.0) % MCV (80.0-100.0) fL MCH (25.0-35.0) pg MCHC (31.0-37.0) g/dL RDW (11.5-15.5) % Plt Count (150-450) k/uL MPV Neutrophils % % Lymphocytes % % Monocytes % % Eosinophils % % Basophils % % Neutrophils # (1.3-7.7) k/uL Lymphocytes # (1.0-4.8) k/uL Monocytes # (0-1.0) k/uL Eosinophils # (0-0.7) k/uL Basophils # (0-0.2) k/uL PT (9.0-12.0) sec INR (<1.2) APTT (22.0-30.0) sec D-Dimer 0.33 (<0.60) mg/L FEU Sodium (137-145) mmol/L Potassium (3.5-5.1) mmol/L Chloride (98-107) mmol/L Carbon Dioxide (22-30) mmol/L Anion Gap mmol/L BUN (7-17) mg/dL Creatinine (0.52-1.04) mg/dL Est GFR (CKD-EPI)AfAm (>60 ml/min/1.73 sqM) Est GFR (CKD-EPI)NonAf (>60 ml/min/1.73 sqM) Glucose (74-99) mg/dL Calcium (8.4-10.2) mg/dL Magnesium (1.6-2.3) mg/dL Total Bilirubin (0.2-1.3) mg/dL AST (14-36) U/L ALT (4-34) U/L Alkaline Phosphatase (38-126) U/L Troponin I <0.012 (0.000-0.034) ng/mL NT-Pro-B Natriuret Pep 330 pg/mL Total Protein (6.3-8.2) g/dL Albumin (3.5-5.0) g/dL Coronavirus (PCR) (Not Detectd) Influenza Type A RNA (Not Detectd) Influenza Type B (PCR) (Not Detectd) 01/29/22 01/29/22 Range/Units 08:41 08:41 WBC (3.8-10.6) k/uL RBC (3.80-5.40) m/uL Hgb (11.4-16.0) gm/dL Hct (34.0-46.0) % MCV (80.0-100.0) fL MCH (25.0-35.0) pg MCHC (31.0-37.0) g/dL RDW (11.5-15.5) % Plt Count (150-450) k/uL MPV Neutrophils % % Lymphocytes % % Monocytes % % Eosinophils % % Basophils % % Neutrophils # (1.3-7.7) k/uL Lymphocytes # (1.0-4.8) k/uL Monocytes # (0-1.0) k/uL Eosinophils # (0-0.7) k/uL Basophils # (0-0.2) k/uL PT (9.0-12.0) sec INR (<1.2) APTT (22.0-30.0) sec D-Dimer (<0.60) mg/L FEU Sodium (137-145) mmol/L Potassium (3.5-5.1) mmol/L Chloride (98-107) mmol/L Carbon Dioxide (22-30) mmol/L Anion Gap mmol/L BUN (7-17) mg/dL Creatinine (0.52-1.04) mg/dL Est GFR (CKD-EPI)AfAm (>60 ml/min/1.73 sqM) Est GFR (CKD-EPI)NonAf (>60 ml/min/1.73 sqM) Glucose (74-99) mg/dL Calcium (8.4-10.2) mg/dL Magnesium (1.6-2.3) mg/dL Total Bilirubin (0.2-1.3) mg/dL AST (14-36) U/L ALT (4-34) U/L Alkaline Phosphatase (38-126) U/L Troponin I (0.000-0.034) ng/mL NT-Pro-B Natriuret Pep pg/mL Total Protein (6.3-8.2) g/dL Albumin (3.5-5.0) g/dL Coronavirus (PCR) Not Detected (Not Detectd) Influenza Type A RNA Not Detected (Not Detectd) Influenza Type B (PCR) Not Detected (Not Detectd) - EKG Data -: EKG Interpreted by Me EKG Comments: 12-lead Electrocardiogram Interpretation Note EKG was reviewed and interpreted by myself. 12-lead ECG performed at 0814 is interpreted by me as revealing normal sinus rhythm at a rate of 79 beats per minute. [place] is normal. GA intervals 174 ms, QRS duration is 80 ms, QTc is 380 ms.. There were no ST or T wave abnormalities to suggest myocardial ischemia or injury. R wave progression across the precordium was satisfactory. By my interpr etation this EKG is non-diagnostic for acute ischemia. Disposition Clinical Impression: COPD exacerbation, Hypoxia, Pulmonary nodule Disposition: ADMITTED IP TO THIS HOSP Condition: Stable Referrals: Arpita Cardenas MD [Primary Care Provider] - 1-2 days Time of Disposition: 11:35
[2022-01-29] MEDS ORDERED: NALOXONE 0.4 MG/ML 1 ML VIAL IV PRN (12:45)
[2022-01-29] MEDS: IPRATROPIUM-ALBUTEROL 3 ML NEB INHALATION SCH ×3 (15:11→19:11)
[2022-01-29] MEDS ORDERED: ACETAMINOPHEN TAB 325 MG TAB PO PRN (17:19)
--- NOTE | 2022-01-29 17:26 | P.HPIM ---
History of Present Illness H&P Date: 01/29/22 Chief Complaint: SOB Patient is a 76-year-old female with PMH of diabetes mellitus, hypertension presents the ED for shortness of breath and wheezing. Patient reports starting a new job at [employer] over the past 2 weeks. On Sunday she started to experience chest congestion, shortness of breath with exertion along with wheezing. Her symptoms worsened over Sunday and Sunday. This morning, she measured an O2 saturation of 85%. She has also attempted to use nebulized treatments which have not helped much. She did go see her PCP who prescribed azithromycin and prednisone. When her symptoms did not improve, this prompted her to come to the ED. She denies any headache, lower extremity edema, nausea or vomiting, fever or chills, cough, chest pain, palpitations, changes in urination or bowel habits. No changes in appetite or weight. She denies any dizziness, nu mbness/weakness/tingling of extremities. In the ED, she was noted to be hypoxic requiring 2 L nasal cannula to maintain O2 saturation in the low to mid 90s. CBC was unremarkable. CMP showed potassium of 3.1, chloride of 97, bicarb of 34 and glucose of 190. Troponin was less than 0.012 with EKG showing no ST changes. BNP was 330. COVID-19 negative. Flu negative. Chest x-ray showed emphysematous changes. CT chest showed possible scarring versus spiculated nodule. Patient is admitted for COPD exacerbation. Her review of systems is negative except those discussed above. General: [non toxic], [no distress], [appears at stated age] Derm: [warm], [dry] Head: [atraumatic], [normocephalic], [symmetric] Eyes: [EOMI], [no lid lag], [anicteric sclera] Mouth: [no lip lesion], [mucus membranes moist] Cardiovascular: [S1S2 reg], [no murmur] Lungs: [Decreased breath sounds bilateral], [no rhonchi, no rales] , [no accessory muscle use] Abdominal: [soft], [ nontender to palpation], [no guarding], [no appreciable organomegaly] Ext: [no gross muscle atrophy], [no edema], [no contractures] Neuro: [ CN II-XI grossly intact], [no focal neuro deficits] Psych: [Alert], [oriented], [appropriate affect] #Acute hypoxic respiratory failure #COPD exacerbation #Pulmonary nodule #Hypokalemia #Diabetes mellitus with hyperglycemia Chronic conditions: Hypertension Patient presents with O2 saturation less than 88% requiring supplemental O2. She is currently on 2 L nasal cannula. She will be started on DuoNeb scheduled and as needed for shortness of breath and wheezing. Solu-Medrol has been s tarted as well. She has never been formally diagnosed with COPD or asthma. She has a 20 year history of smoking but quit in 2000. She does have a pulmonology appointment in February with Dr. Shields. She will need further workup of her pulmonary nodule. She can follow this up with Dr. Shields with her appointment in February. Her potassium has been replaced with 20 mEq by mouth. BMP will be repeated tomorrow morning. Low-dose insulin sliding scale will be started along with Accu-Cheks 4 times a day and hypoglycemic precautions. We will restart her home medication. Patient names her daughter Denver decision maker if she can make decision for herself. Patient would like to be full code. Lovenox will be used for DVT prophylaxis. Past Medical History Past Medical History: COPD, Diabetes Mellitus, Hypertension Additional Past Medical History / Comment(s): macular degeneration History of Any Multi-Drug Resistant Organisms: None Reported Past Surgical History: Hysterectomy Past Psychological History: No Psychological Hx Reported Smoking Status: Former smoker Past Alcohol Use History: None Reported Past Drug Use History: None Reported - Past Family History Mother Family Medical History: Cancer Additional Family Medical History / Comment(s): breast, uterine, thyroid cancer. Father History Unknown: Yes Medications and Allergies Home Medications Medication Instructions Recorded Confirmed Type 3-6-9 1 tab PO DAILY 01/25/22 01/29/22 History Ascorbic Acid/Collagen Hydr 1 cap PO DAILY 01/25/22 01/29/22 History [Collagen Plus Vit C Capsule] Benzonatate [Benzonatate Perle] 200 mg PO TID PRN 01/25/22 01/29/22 History Cholecalciferol [Vitamin D3 (25 25 mcg PO DAILY 01/25/22 01/29/22 History Mcg = 1000 Iu)] Cyanocobalamin (Vitamin B-12) 1,000 mcg PO DAILY 01/25/22 01/29/22 History [Vitamin B-12] Glimepiride [Amaryl] 4 mg PO AC-BID 01/25/22 01/29/22 History Ibuprofen [Motrin Ib] 400 mg PO HS PRN 01/25/22 01/29/22 History carvediloL [Coreg] 6.25 mg PO BID 01/25/22 01/29/22 History hydroCHLOROthiazide [Hydrodiuril] 25 mg PO DAILY 01/25/22 01/29/22 History Albuterol Inhaler [Ventolin Hfa 2 puff INHALATION RT-QID PRN #8 gm 01/26/22 01/29/22 Rx Inhaler] predniSONE 50 mg PO DAILY 5 Days #5 tablet 01/26/22 01/29/22 Rx Azithromycin [Zithromax] 500 mg PO DAILY 01/29/22 01/29/22 History Immune Support 1 tab PO TID 01/29/22 01/29/22 History Allergies Allergy/AdvReac Type Severity Reaction Status Date / Time Iodinated Contrast Media Allergy Swelling Verified 01/29/22 13:37 [Iodinated Contrast Media - IV Dye] levofloxacin [From Levaquin] Allergy Swelling Verified 01/29/22 13:37 lisinopril Allergy Cough Verified 01/29/22 13:37 Physical Exam Vitals: Vital Signs Temp Pulse Resp BP Pulse Ox 01/29/22 15:45 80 18 178/87 95 01/29/22 15:19 90 18 01/29/22 15:11 93 18 01/29/22 13:20 78 195/104 96 01/29/22 11:00 61 18 197/103 92 L 01/29/22 10:18 70 18 01/29/22 10:08 68 18 01/29/22 10:00 68 22 189/90 96 01/29/22 09:00 67 22 196/80 96 01/29/22 08:57 70 18 01/29/22 08:48 70 18 01/29/22 08:31 68 18 196/80 93 L 01/29/22 08:04 97.1 F L 69 18 195/81 91 L Intake and Output 01/29/22 01/29/22 01/29/22 06:59 14:59 22:59 Other: Weight 82.554 kg 82.554 kg Results CBC & Chem 7: 01/29/22 08:36 01/29/22 08:36 Labs: Abnormal Lab Results - Last 24 Hours (Table) 01/29/22 Range/Units 08:36 Potassium 3.1 L (3.5-5.1) mmol/L Chloride 97 L (98-107) mmol/L Carbon Dioxide 34 H (22-30) mmol/L Glucose 190 H (74-99) mg/dL Thrombosis Risk Factor Assmnt - Choose All That Apply Any of the Below Risk Factors Present?: Yes Each Factor Represents 1 point: Abnormal pulmonary function (COPD) Other Risk Factors: Yes Each Risk Factor Represents 3 Points: Age 75 years or older Thrombosis Risk Factor Assessment Total Risk Factor Score: 4 Thrombosis Risk Factor Assessment Level: Moderate Risk
[2022-01-29 17:34] LABS: Glucose,Whole Blood 307 mg/dL (75-99)
[2022-01-29] MEDS: methylPREDNISolone SOD SUCCI 40 MG/ML 1 ML VIAL IV SCH (17:48)
[2022-01-29] MEDS: GLIMEPIRIDE 4 MG TAB PO SCH (17:48)
[2022-01-29] MEDS: carvediloL 6.25 MG TAB PO SCH (17:48)
[2022-01-29] MEDS ORDERED: IPRATROPIUM-ALBUTEROL 3 ML NEB INHALATION PRN (19:05)
[2022-01-29 21:34] LABS: Glucose,Whole Blood 293 mg/dL (75-99)
[2022-01-29] MEDS: INSULIN ASPART (NovoLOG) 100 UNIT/ML VIAL SQ SCH (22:08)
[2022-01-30] MEDS: methylPREDNISolone SOD SUCCI 40 MG/ML 1 ML VIAL IV SCH ×2 (00:29→08:48)
[2022-01-30 07:12] LABS: Glucose,Whole Blood 217 mg/dL (75-99)
[2022-01-30] MEDS ORDERED: INSULIN ASPART (NovoLOG) 100 UNIT/ML VIAL SQ SCH (07:30)
[2022-01-30 07:37] VITALS: BP 117/93; TEMP 97.6
[2022-01-30] MEDS: IPRATROPIUM-ALBUTEROL 3 ML NEB INHALATION SCH ×2 (07:38→11:04)
[2022-01-30] MEDS: carvediloL 6.25 MG TAB PO SCH (08:43)
[2022-01-30] MEDS: INSULIN ASPART (NovoLOG) 100 UNIT/ML VIAL SQ SCH (08:43)
[2022-01-30] MEDS: GLIMEPIRIDE 4 MG TAB PO SCH (08:43)
[2022-01-30] MEDS ORDERED: hydroCHLOROthiazide 25 MG TAB PO SCH (09:00)
[2022-01-30] MEDS ORDERED: ENOXAPARIN 40 MG/0.4 ML SYRINGE SQ SCH (09:00)
[2022-01-30 09:13] LABS: Basophils # (A) 0.01 X 10*3/uL (0.00-0.10); Basophils % (A) 0.1 %; Eosinophils # (A) 0 X 10*3/uL (0.04-0.35); Eosinophils % (A) 0 %; HCT 42.3 % (37.2-46.3); Immature Grans, Automated 1.7 %; Lymphocytes # (A) 0.84 X 10*3/uL (0.90-5.00); MCH 31.7 pg (27.0-32.0); MCHC 33.1 g/dL (32.0-37.0); MCV 95.9 fL (80.0-97.0); Mean Platelet Volume 10.3 fL (9.5-12.2); Monocytes # (A) 0.37 X 10*3/uL (0.20-1.00); Monocytes % (A) 4.4 %; NRBC Per 100 WBC 0 /100 WBCS (0.0-0.0); Neutrophils # (A) 7.02 X 10*3/uL (1.80-7.70); Neutrophils % (A) 83.8 %; Platelet Count 287 X 10*3/uL (140-440); RBC 4.41 X 10*6/uL (4.10-5.20); RDW 11.9 % (11.5-14.5); WBC 8.38 X 10*3/uL (4.50-10.00)
[2022-01-30 09:36] LABS: African American GFR (CKD) 105.2 (60.0-200.0); Anion Gap 11.8 mmol/L (10.00-18.00); BUN/Creat Ratio 23.02 Ratio (12.00-20.00); Blood Urea Nitrogen 13.1 mg/dL (9.0-27.0); Calcium 9.3 mg/dL (8.7-10.3); Carbon Dioxide 30.3 mmol/L (20.0-27.5); Non-African American GFR(CKD) 90.7 (60.0-200.0); Potassium 4.4 mmol/L (3.5-5.5)
[2022-01-30 11:06] VITALS: PULSE 86
[2022-01-30 11:50] LABS: Glucose,Whole Blood 223 mg/dL (75-99)
--- NOTE | 2022-01-30 18:11 | P.DS ---
Providers Date of admission: 01/29/22 12:45 Expected date of discharge: 01/30/22 Attending physician: Amna Ayon MD [facility] Course: Discharge Diagnosis: Acute hypoxic and hypercapnic respiratory distress secondary to COPD exacerbation, Patient discharged home on home oxygen and will need to follow-up with pulmonology as scheduled for further evaluation and PFTs as well as further evaluation of previously noted right upper lobe nodularity noted on x-ray. Patient discharged home with prednisone taper and to continue ventolin inhaler as needed for SOB and wheezing. Right upper lobe spiculated nodularity, patient to follow-up outpatient with pulmonary for further evaluation Hypertension Type II [id number] diabetes mellitus Long-standing history of nicotine use Hospital Course: Patient is a very pleasant 76-year-old female with a past medical history of hypertension, type II [id number] diabetes mellitus, COPD, and long- standing history of nicotine use. She presented to the hospital with a chief complaint of shortness of breath and hypoxia at home status post recent hospitalization for COPD exacerbation 01/25/22 through 01/26/22. She was seen and fully evaluated. Chest x-ray completed revealing chronic emphysematous changes as well as spiculated nodule in right upper lobe similar to prior examination. CT chest completed revealing [id number] borderline underlying emphysematous changes negative for acute cardiopulmonary process, area of concern reported on x-rays possibly reflecting focal scarring versus spiculated nodule recommending further evaluation outpatient for possible PET scan. EKG revealing normal sinus rhythm at 79 bpm. Patient was started on IV steroids and breathing treatments. The patient reported full resolution of shortness of breath. An ambulatory home oxygen evaluation was completed, patient was found to be hypoxic with ambulation with SpO2 dropping down to 85% on room air with exertion from 90% on room air at rest. Patient requiring 2 L O2 via nasal cannula to maintain SpO2 of 91% with ambulation. Arrangements have been made for patient to be discharged with home oxygen. patient being discharged home on home oxygen with prednisone taper and to follow up with sports physiologist as previously scheduled for evaluation of COPD as well as concerns of spiculated nodule versus scarring of right upper lobe. Physical examination: Patient seen and examined at bedside. Vital signs reviewed and stable. General: Nontoxic, no distress and appears stated age. Derm: Skin warm and dry, normal coloration for ethnicity. Head: Atraumatic, normocephalic and symmetric. Eyes: EOMs intact, no lid lag, and anicteric sclera Mouth: no lip lesions, mucus membranes moist Cardiovascular: regular rate and rhythm with normal S1S2, no murmur, positive posterior tibial pulses bilaterally, and cap refill < 2 seconds. Lungs: Respirations even, regular, and unlabored on room air. Lungs slightly diminished. There is no wheezes, rales, rhonchi, or crackles present. No accessory muscle usage. Abdominal: soft, nontender to palpation, no guarding, no appreciable organomegaly Ext: ROM intact. No gross muscle atrophy, no edema, no contractures Neuro: Speech clear, face symmetrical and CN II-XII grossly intact with no noted focal neuro deficits Psych: Alert and oriented to person, place, time, and situation. Appropriate and pleasant affect. A total of 41 minutes of time were spent preparing this complex discharge summary. Patient Condition at Discharge: Stable Plan - Discharge Summary New Discharge Prescriptions: New predniSONE See Taper PO DIRECTED 12 Days #30 tab Continue Cholecalciferol [Vitamin D3 (25 Mcg = 1000 Iu)] 25 mcg PO DAILY Ascorbic Acid/Collagen Hydr [Collagen Plus Vit C Capsule] 1 cap PO DAILY hydroCHLOROthiazide [Hydrodiuril] 25 mg PO DAILY carvediloL [Coreg] 6.25 mg PO BID Glimepiride [Amaryl] 4 mg PO AC-BID Benzonatate [Benzonatate Perle] 200 mg PO TID PRN PRN Reason: Cough Cyanocobalamin (Vitamin B-12) [Vitamin B-12] 1,000 mcg PO DAILY 1 tab PO DAILY Albuterol Inhaler [Ventolin Hfa Inhaler] 2 puff INHALATION RT-QID PRN #8 gm PRN Reason: Shortness Of Breath Or Wheezing Ibuprofen [Motrin Ib] 400 mg PO HS PRN PRN Reason: Pain Immune Support 1 tab PO TID Discontinued predniSONE 50 mg PO DAILY 5 Days #5 tablet Azithromycin [Zithromax] 500 mg PO DAILY Discharge Medication List 1 tab PO DAILY 01/25/22 [History] Ascorbic Acid/Collagen Hydr [Collagen Plus Vit C Capsule] 1 cap PO DAILY 01/25/22 [History] Benzonatate [Benzonatate Perle] 200 mg PO TID PRN 04/06/22 [History] Cholecalciferol [Vitamin D3 (25 Mcg = 1000 Iu)] 25 mcg PO DAILY 01/25/22 [History] Cyanocobalamin (Vitamin B-12) [Vitamin B-12] 1,000 mcg PO DAILY 01/25/22 [History] Glimepiride [Amaryl] 4 mg PO AC-BID 01/25/22 [History] Ibuprofen [Motrin Ib] 400 mg PO HS PRN 01/25/22 [History] carvediloL [Coreg] 6.25 mg PO BID 01/25/22 [History] hydroCHLOROthiazide [Hydrodiuril] 25 mg PO DAILY 01/25/22 [History] Albuterol Inhaler [Ventolin Hfa Inhaler] 2 puff INHALATION RT-QID PRN #8 gm 01/26/22 [Rx] Immune Support 1 tab PO TID 01/29/22 [History] predniSONE See Taper PO DIRECTED 12 Days #30 tab 01/30/22 [Rx] Follow up Appointment(s)/Referral(s): [facility] [NON-STAFF] - As Needed Arpita Cardenas MD [Primary Care Provider] - 1-2 days Bryan Shields MD [STAFF PHYSICIAN] - 1 Week (follow up on 02/21/22 as sched uled) Patient Instructions/Handouts: COPD (Chronic Obstructive Pulmonary Disease) (DC) Activity/Diet/Wound Care/Special Instructions: Activity: As tolerated. Take breaks as needed. Diet: Heart healthy and carb consistent diet. Avoid salts, or foods with hidden salts such as canned or boxed foods and frozen dinners. Extra salt makes your heart work harder and traps the fluid in your body for longer. Special Instructions: Take all of your medications as directed and remember to keep all of your doctor's appointments and follow-up as needed. You are being discharged home on home oxygen for your COPD, it is important to have lung function evaluated by sports physiologist as we discussed. Thank you for allowing us to participate in your care, it was truly a pleasure having you for our patient!!! Discharge Disposition: HOME SELF-CARE
== END 2022-01-30 12:01 | disposition home or self-care (01) ==
LOC: EC 08:03 → 6NMEDSUR 12:45
PROVIDERS: ADMIT Family Medicine; ATTEND Family Medicine
DX: J44.1 Chronic obstructive pulmonary disease with (acute) exacerbation (principal); J96.01 Acute respiratory failure with hypoxia; E87.6 Hypokalemia; I10 Essential (primary) hypertension; R91.1 Solitary pulmonary nodule; E11.65 Type 2 diabetes mellitus with hyperglycemia; H35.30 Unspecified macular degeneration; Z20.822 Contact with and (suspected) exposure to COVID-19; Z79.84 Long term (current) use of oral hypoglycemic drugs; Z79.899 Other long term (current) drug therapy; Z91.048 Other nonmedicinal substance allergy status; Z88.8 Allergy status to other drugs, medicaments and biological substances; Z87.891 Personal history of nicotine dependence; Z90.710 Acquired absence of both cervix and uterus; Z71.3 Dietary counseling and surveillance; Z80.3 Family history of malignant neoplasm of breast; Z80.8 Family history of malignant neoplasm of other organs or systems
CPT/HCPCS: 99285; 96376; 96372; 96375 ×2; 96374; 36415; 94640 ×4; 93005; 85379; 83880; 80053; 80048; 83735; 84484; 85025 ×2; 85610; 85730; 87502; 87635; 71046; 71250; G0378 ×2; J0360; J2920 ×2; J2405; J1650; J7512

== ENCOUNTER → 2023-01-31 | Outpatient (CLI) | payer MEDICARE ==
--- NOTE | 2023-01-31 12:57 | BD ---
EXAMINATION TYPE: Axial Bone Density DATE OF EXAM: 01/31/2023 CLINICAL HISTORY: 77 years old Female. ICD-10 CODE: Z78.0 Post menopausal w/o HRT Height: 64.25 Weight: 188 FRAX RISK QUESTIONS: Family History (Parent hip fracture): no History of Fracture in Adulthood: yes, rt ankle 2008 Secondary Osteoporosis: no Rheumatoid Arthritis: no RISK FACTORS HISTORY OF: Family History of Osteoporosis: no Active: yes Diet low in dairy products/other sources of calcium: no Postmenopausal woman: yes Lost more than 2 inches in height since high school: yes, 2.75 inches Frequent falls: no Poor Health: yes MEDICATIONS: Additional Medications: yes vit d, multi vit with immune, eye meds. EXAM MEASUREMENTS: Bone mineral densitometry was performed using the [employer] System. Bone mineral density as measured about the Lumbar spine is: ----- L1-L4(G/cm2): 1.203 T Score Values are as follows: ----- L1: 0.1 ----- L2: -0.7 ----- L3: 1.0 ----- L4: 0.2 ----- L1-L4: 0.2 Z Score Values are as follows: ----- L1: 1.2 ----- L2: 0.5 ----- L3: 2.1 ----- L4: 1.3 ----- L1-L4: 1.3 Bone mineral density baseline Bone mineral density about the R hip (g/cm2): 0.996 Bone mineral density about the L hip (g/cm2): 0.936 T Score values are as follows: -----R Neck: -0.8 -----L Neck: -0.9 -----R Total: -0.1 -----L Total: -0.6 Z Score values are as follows: -----R Neck: 0.8 -----L Neck: 0.7 -----R Total: 1.3 -----L Total: 0.8 Bone mineral density baseline FRAX%s: The graph provided illustrates a 14.8% chance for a major osteoporotic fx and a 2.1% chance f or the hips probability for fx in 10 years time. IMPRESSION: Normal (Values between +1 and -1 indicate normal bone mass). Consider repeating this study in 5 year s or sooner if there is some new clinical indication. NOTE: T-SCORE=SD OF THE YOUNG ADULT MEAN.
--- NOTE | 2023-02-01 17:15 | MM ---
Reason for Exam: Screening (asymptomatic). Last screening mammogram was performed 12 month(s) ago. Patient History: Menarche at age 14. First Full-Term at age 21. Left ovary removed at age 43. Right ovary removed at age 43. Hysterectomy at age 43. Postmenopausal. Hormonal Contraceptives for 1 year, 6 months. Mother had breast cancer, age 50. Risk Values: Linh 5 year model risk: 3.4%. NCI Lifetime model risk: 6.8%. Prior Study Comparison: 04/21/2020 Screening Mammogram, [facility]. 12/01/2020 Bilateral Screening Mammogram, [facility]. 01/27/2022 Bilateral Screening Mammogram, [facility]. Tissue Density: There are scattered fibroglandular densities. Findings: Analyzed By CAD. Pattern appears symmetrical and stable. Chronic nodularity is within the right breast. No suspicious groups of microcalcifications, spiculated or lobular masses, architectural distortion or other secondary signs of malignancy are mammographically apparent. Overall Assessment: Benign, BI-RAD 2 Management: Screening Mammogram of both breasts in 1 year. A negative mammogram report should not preclude additional follow up of suspicious palpable abnormalities. Patient should continue monthly self breast exam. A clinical breast exam by your physician is recommended on an annual basis and results should be correlated with mammographic findings. Electronically signed and approved by: Vladislav Cortez D.O. Radiologis
== END | disposition home or self-care (01) ==
LOC: RADMAMWWP 10:06
PROVIDERS: ATTEND Family Medicine
DX: Z12.31 Encounter for screening mammogram for malignant neoplasm of breast (principal); Z78.0 Asymptomatic menopausal state; Z80.3 Family history of malignant neoplasm of breast
CPT/HCPCS: 77063; 77067; 77080

== ENCOUNTER 2023-10-24 01:12 | Observation (INO) | payer MEDICARE ==
[2023-10-24] MEDS ORDERED: ALBUTEROL HFA INHALER INHALATION STA (01:47)
[2023-10-24] MEDS ORDERED: methylPREDNISolone SOD SUCCI 125 MG/2 ML VIAL IV STA (01:48)
[2023-10-24 02:46] LABS: ALT 23 U/L (4-34); AST 31 U/L (14-36); African American GFR (CKD) >90 (>60 ml/min/1.73 sqM); Albumin 3.7 g/dL (3.5-5.0); Alkaline Phosphatase 66 U/L (38-126); Anion Gap 9 mmol/L; Blood Urea Nitrogen 11 mg/dL (7-17); Carbon Dioxide 35 mmol/L (22-30); Chloride 85 mmol/L (98-107); Glucose 187 mg/dL (74-99); Magnesium 1.8 mg/dL (1.6-2.3); Non-African American GFR(CKD) >90 (>60 ml/min/1.73 sqM); Potassium 3.2 mmol/L (3.5-5.1); Sodium 129 mmol/L (137-145); Total Bilirubin 0.9 mg/dL (0.2-1.3); Total Protein 6.3 g/dL (6.3-8.2)
[2023-10-24 03:01] LABS: INR 0.9 (<1.2); Partial Thromboplastin Time 22.8 sec (22.0-30.0); Prothrombin Time 10.3 sec (10.0-12.5)
[2023-10-24] MEDS ORDERED: SODIUM CHLORIDE 0.9% 1,000 ML IV STA ×2 (03:11→03:18)
--- NOTE | 2023-10-24 03:19 | ED ---
General Adult HPI - General Chief complaint: Shortness of Breath Stated complaint: COVID, Shortness of Breath Time Seen by Provider: 10/24/23 01:27 Source: patient, EMS Mode of arrival: EMS - History of Present Illness Initial comments: 78-year-old female with past medical history significant for COPD presented to the ED with a chief complaint of dyspnea. Patient states for the past week has had cough, congestion, shortness of breath. States that she was seen earlier in the week and was diagnosed positive with Covid. States she was initially given a Z-Sampson which patient reports did nothing for her. Presented again to her PCP who provided her a prescription for Augmentin. States despite these medications, still feels short of breath. The presentation to the ED for fu rther evaluation. Denies chest pain. - Related Data Home Medications Medication Instructions Recorded Confirmed 1 tab PO DAILY 01/25/22 01/29/22 Ascorbic Acid/Collagen Hydr 1 cap PO DAILY 01/25/22 01/29/22 [Collagen Plus Vit C Capsule] Benzonatate [Tessalon Perle] 200 mg PO TID PRN 01/25/22 01/29/22 Cholecalciferol [Vitamin D3 (25 25 mcg PO DAILY 01/25/22 01/29/22 Mcg = 1000 Iu)] Cyanocobalamin (Vitamin B-12) 1,000 mcg PO DAILY 01/25/22 01/29/22 [Vitamin B-12] Glimepiride [Amaryl] 4 mg PO AC-BID 01/25/22 01/29/22 Ibuprofen [Motrin Ib] 400 mg PO HS PRN 01/25/22 01/29/22 carvediloL [Coreg] 6.25 mg PO BID 01/25/22 01/29/22 hydroCHLOROthiazide [Hydrodiuril] 25 mg PO DAILY 01/25/22 01/29/22 Immune Support 1 tab PO TID 01/29/22 01/29/22 Previous Rx's Medication Instructions Recorded Albuterol Inhaler [Ventolin Hfa 2 puff INHALATION RT-QID PRN #8 gm 01/26/22 Inhaler] predniSONE See Taper PO DIRECTED 12 Days 01/30/22 #30 tab Allergies Allergy/AdvReac Type Severity Reaction Status Date / Time Iodinated Contrast Media Allergy Swelling Verified 01/03/24 01:20 [Iodinated Contrast Media - IV Dye] levofloxacin [From Levaquin] Allergy Swelling Verified 10/24/23 01:20 lisinopril Allergy Cough Verified 10/24/23 01:20 Review of Systems ROS Statement: Those systems with pertinent positive or pertinent negative responses have been documented in the HPI. ROS Other: All systems not noted in ROS Statement are negative. Past Medical History Past Medical History: COPD, Diabetes Mellitus, Hypertension Additional Past Medical History / Comment(s): macular degeneration History of Any Multi-Drug Resistant Organisms: None Reported Past Surgical History: Hysterectomy Past Psychological History: No Psychological Hx Reported Smoking Status: Former smoker Past Alcohol Use History: None Reported Past Drug Use History: None Reported - Past Family History Mother Family Medical History: Cancer Additional Family Medical History / Comment(s): breast, uterine, thyroid cancer. Father History Unknown: Yes General Exam General appearance: alert, in no apparent distress Respiratory exam: Present: wheezes Cardiovascular Exam: Present: regular rate GI/Abdominal exam: Present: soft Neurological exam: Present: alert, oriented X3 Skin exam: Present: warm, dry Course Vital Signs 10/24/23 10/24/23 10/24/23 01:15 02:17 03:53 Temperature 97.7 F Pulse Rate 77 70 70 Respiratory 24 23 20 Rate Blood Pressure 174/100 184/90 180/74 O2 Sat by Pulse 99 98 97 Oximetry Medical Decision Making - Medical Decision Making Was pt. sent in by a medical professional or institution (, PA, PLANT OPERATIONS WORKER, urgent care, hospital, or prison...) When possible be specific @ -no Did you speak to anyone other than the patient for history (EMS, parent, family, police, friend...)? What history was obtained from this source @ -No Did you review nursing and triage notes (agree or disagree)? Why? @ -I reviewed and agree with nursing and triage notes Were old charts reviewed (outside hosp., previous admission, EMS record, old EKG, old radiological studies, urgent care reports/EKG's, prison records)? Report findings @ -No old charts were reviewed Differential Diagnosis (chest pain, altered mental status, abdominal pain women, abdominal pain men, vaginal bleeding, weakness, fever, dyspnea, syncope, hea dache, dizziness, GI bleed, back pain, seizure, CVA, palpatations, mental health, musculoskeletal)? @ -Differential Dyspnea: Coronary syndrome, arrhythmia, tamponade, asthma, COPD, pulmonary embolism, pneumonia, pneumothorax, pulmonary effusion, anaphylaxis, diabetic ketoacidosis, flailed chest, pulmonary contusion, diaphragmatic rupture, anemia, neuromuscular, this is not meant to be an all-inclusive list. EKG interpreted by me (3pts min.). @ -As above X-rays interpreted by me (1pt min.). @ - Chest x-ray at this time is pending. CT interpreted by me (1pt min.). @ -None done U/S interpreted by me (1pt. min.). @ -None done What testing was considered but not performed or refused? (CT, X-rays, U/S, la bs)? Why? @ -None What meds were considered but not given or refused? Why? @ -None Did you discuss the management of the patient with other professionals (professionals i.e. , PA, PLANT OPERATIONS WORKER, lab, RT, psych nurse, home health care social worker, loss prevention investigator, teacher, probation officer, onsite case manager)? Give summary @ -No Was smoking cessation discussed for >3mins.? @ -No Was critical care preformed (if so, how long)? @ -No Were there social determinants of health that impacted care today? How? (Homelessness, low income, unemployed, alcoholism, drug addiction, transportation, low edu. Level, literacy, decrease access to med. care, detention, rehab)? @ -No Was there de-escalation of care discussed even if they declined (Discuss DNR or withdrawal of care, Hospice)? DNR status @ -No What co-morbidities impacted this encounter? (DM, HTN, Smoking, COPD, CAD, Cancer, CVA, ARF, Chemo, Hep., AIDS, mental health diagnosis, sleep apnea, morbid obesity)? @ -COPD Was patient admitted / discharged? Hospital course, mention meds given and route, prescriptions, significant lab abnormalities, going to OR and other pertinent info. @ -admission 78-year-old female with past medical history significant for COPD presenting to the ED with chief complaint of dyspnea. Earlier in the week was diagnosed with COVID and since then has been getting progressively more short of breath. Laboratory studies reviewed. CBC significant for an elevated white count at 11.9, neutrophils at 9, monocytes 1.1. Chemistry panel significant for sodium of 129, potassim 3.2, chloride 85, CO2 35. After albuterol treatment, attempted to wean patient off oxygen. Patient dropped to 87% on RA. Due to hypoxia and continued dyspnea patient will be admitted. Undiagnosed new problem with uncertain prognosis? @ -No Drug Therapy requiring intensive monitoring for toxicity (Heparin, Nitro, Insulin, Cardizem)? @ -No Were any procedures done? @ -No Diagnosis/symptom? @ -COVID, hypoxia Acute, or Chronic, or Acute on Chronic? @ -Acute Uncomplicated (without systemic symptoms) or Complicated (systemic symptoms)? @ -Complicated Side effects of treatment? @ -No Exacerbation, Progression, or Severe Exacerbation? @ -No Poses a threat to life or bodily function? How? (Chest pain, USA, ID, pneumonia, PE, COPD, DKA, ARF, appy, cholecystitis, CVA, Diverticulitis, Homicidal, Suicidal, threat to staff... and all critical care pts) @ -Possibly - Lab Data Result diagrams: 10/24/23 02:22 10/24/23 02:22 Lab Results 10/24/23 10/24/23 10/24/23 Range/Units 02:22 02:22 02:22 WBC 11.9 H (3.8-10.6) k/uL RBC 4.49 (3.80-5.40) m/uL Hgb 14.5 (11.4-16.0) gm/dL Hct 41.6 (34.0-46.0) % MCV 92.6 (80.0-100.0) fL MCH 32.3 (25.0-35.0) pg MCHC 34.8 (31.0-37.0) g/dL RDW 12.4 (11.5-15.5) % Plt Count 308 (150-450) k/uL MPV 8.8 Neutrophils % 76 % Lymphocytes % 11 % Monocytes % 9 % Eosinophils % 2 % Basophils % 1 % Neutrophils # 9.0 H (1.3-7.7) k/uL Lymphocytes # 1.3 (1.0-4.8) k/uL Monocytes # 1.1 H (0-1.0) k/uL Eosinophils # 0.2 (0-0.7) k/uL Basophils # 0.1 (0-0.2) k/uL PT 10.3 (10.0-12.5) sec INR 0.9 (<1.2) APTT 22.8 (22.0-30.0) sec Sodium 129 L (137-145) mmol/L Potassium 3.2 L (3.5-5.1) mmol/L Chloride 85 L (98-107) mmol/L Carbon Dioxide 35 H (22-30) mmol/L Anion Gap 9 mmol/L BUN 11 (7-17) mg/dL Creatinine 0.39 L (0.52-1.04) mg/dL Est GFR (CKD-EPI)AfAm >90 (>60 ml/min/1.73 sqM) Est GFR (CKD-EPI)NonAf >90 (>60 ml/min/1.73 sqM) Glucose 187 H (74-99) mg/dL Calcium 9.0 (8.4-10.2) mg/dL Magnesium 1.8 (1.6-2.3) mg/dL Total Bilirubin 0.9 (0.2-1.3) mg/dL AST 31 (14-36) U/L ALT 23 (4-34) U/L Alkaline Phosphatase 66 (38-126) U/L Troponin I (0.000-0.034) ng/mL Total Protein 6.3 (6.3-8.2) g/dL Albumin 3.7 (3.5-5.0) g/dL 10/24/23 Range/Units 02:22 WBC (3.8-10.6) k/uL RBC (3.80-5.40) m/uL Hgb (11.4-16.0) gm/dL Hct (34.0-46.0) % MCV (80.0-100.0) fL MCH (25.0-35.0) pg MCHC (31.0-37.0) g/dL RDW (11.5-15.5) % Plt Count (150-450) k/uL MPV Neutrophils % % Lymphocytes % % Monocytes % % Eosinophils % % Basophils % % Neutrophils # (1.3-7.7) k/uL Lymphocytes # (1.0-4.8) k/uL Monocytes # (0-1.0) k/uL Eosinophils # (0-0.7) k/uL Basophils # (0-0.2) k/uL PT (10.0-12.5) sec INR (<1.2) APTT (22.0-30.0) sec Sodium (137-145) mmol/L Potassium (3.5-5.1) mmol/L Chloride (98-107) mmol/L Carbon Dioxide (22-30) mmol/L Anion Gap mmol/L BUN (7-17) mg/dL Creatinine (0.52-1.04) mg/dL Est GFR (CKD-EPI)AfAm (>60 ml/min/1.73 sqM) Est GFR (CKD-EPI)NonAf (>60 ml/min/1.73 sqM) Glucose (74-99) mg/dL Calcium (8.4-10.2) mg/dL Magnesium (1.6-2.3) mg/dL Total Bilirubin (0.2-1.3) mg/dL AST (14-36) U/L ALT (4-34) U/L Alkaline Phosphatase (38-126) U/L Troponin I <0.012 (0.000-0.034) ng/mL Total Protein (6.3-8.2) g/dL Albumin (3.5-5.0) g/dL - EKG Data EKG Comments: EKG shows a sinus rhythm at [address] or T-wave changes. SC 178, QRS 81, QT/QTc 364/94. Disposition Clinical Impression: Dyspnea, COVID Disposition: ADMITTED IP TO THIS HOSP Referrals: Arpita Bose NPC [Primary Care Provider] - 1-2 days
[2023-10-24 03:34] LABS: Basophils # (A) 0.1 k/uL (0-0.2); Basophils % (A) 1 %; Eosinophils # (A) 0.2 k/uL (0-0.7); Eosinophils % (A) 2 %; HCT 41.6 % (34.0-46.0); HGB 14.5 gm/dL (11.4-16.0); Lymphocytes # (A) 1.3 k/uL (1.0-4.8); Lymphocytes % (A) 11 %; MCH 32.3 pg (25.0-35.0); MCHC 34.8 g/dL (31.0-37.0); MCV 92.6 fL (80.0-100.0); Mean Platelet Volume 8.8; Monocytes # (A) 1.1 k/uL (0-1.0); Monocytes % (A) 9 %; Neutrophils % (A) 76 %; Platelet Count 308 k/uL (150-450); RBC 4.49 m/uL (3.80-5.40); RDW 12.4 % (11.5-15.5); WBC 11.9 k/uL (3.8-10.6)
[2023-10-24] MEDS ORDERED: NALOXONE 0.4 MG/ML 1 ML VIAL IVP PRN (04:12)
[2023-10-24] MEDS ORDERED: AZITHROMYCIN 500 MG in SODIUM CHLORIDE 0.9% 250 ML IVPB ONE (05:00)
[2023-10-24] MEDS ORDERED: IPRATROPIUM-ALBUTEROL 3 ML NEB INHALATION PRN (05:15)
--- NOTE | 2023-10-24 05:20 | P.HPIM ---
History of Present Illness H&P Date: 10/24/23 Patient is a 74-year-old male with a PMH of COPD, type II DM, and hypertension who presents with intermittent treatment with complaints of shortness of breath and cough. Patient reports she's been experiencing her above symptoms the past 1 week. She was seen at an urgent care center a few days ago, she was diagnosed with COVID. She reports initially prescribed Z-Sampson which did not alleviate her symptoms, and subsequently admitted by her PCP which also have thus far not improved her respiratory symptoms. She reports that her cough is productive of white to brown phlegm. He reports occasional fevers and chills, which resolved 2 days ago. Denies expressing chest discomfort, nausea, vomiting, abdominal pain, diarrhea. Chest x-ray in the emergency room revealed a generalized haziness as reviewed by me. EKG reveals sinus rhythm at [address]/T-wave changes noted as reviewed by me. Laboratory evaluation was remarkable for leukocytosis of 11.9, sodium 129, potassium 3.2, chloride 85, CO2 35, creatinine 0.89, glucose 187, troponin less than 0.02. ED documentation reviewed and case discussed with ED provider. Review of systems: Pertinent positives and negatives as discussed in HPI, a complete review of systems was performed and all other systems are negative. Physical examination: Vital signs reviewed General: non toxic, no distress, appears at stated age, obese Derm: no unusual rashes/lesions, warm Head: atraumatic, normocephalic, symmetric Eyes: EOMI, no lid lag, anicteric sclera, pupils equal round reactive to light ENT: Nose and ears atraumatic Neck: No cervical lymphadenopathy, trachea midline, supple Mouth: no lip lesion, mucus membranes moist Cardiovascular: S1S2 reg, no murmur, positive dorsalis pedis pulse bilateral, no edema Lungs: Mild expiratory wheezing diffusely with some coarse breath sounds scattered, no accessory muscle use Abdominal: soft, nontender to palpation, no guarding Ext: muscle strength 5 out of 5 in all 4 extremities grossly, no gross muscle atrophy, no contractures, Neuro: CN II-XI grossly intact, no gross focal neuro deficits Psych: Alert, oriented, appropriate affect Assessment: COVID pneumonitis Hypochloremic hyponatremia Alkalosis Chronic conditions: COPD, diabetes, hypertension Imaging: Chest x-ray in the emergency room revealed a generalized haziness as reviewed by me. EKG reveals sinus rhythm at [address]/T-wave changes noted as reviewed by me. Data Review: Laboratory evaluation was remarkable for leukocytosis of 11.9, sodium 129, potassium 3.2, chloride 85, CO2 35, creatinine 0.89, glucose 187, troponin less than 0.02. Plan: Continue Solu-Medrol 60 mg IV every 6 hourly Check procalcitonin levels Continue with DuoNeb around the clock and as needed Follow-up hyponatremia workup Continue with IV fluids with normal saline 75 mL/h Monitor BMP C/w Ceftriaxone and Azithromycin for now Follow-up ABG in setting of significant alkalosis DVT prophylaxis: Lovenox The patient is admitted with an anticipated less than 2 midnight stay for jaylyn Lee CODE STATUS: Full Code Discussed with: Patient Anticipated discharge place: Home Past Medical History Past Medical History: COPD, Diabetes Mellitus, Hypertension Additional Past Medical History / Comment(s): macular degeneration History of Any Multi-Drug Resistant Organisms: None Reported Past Surgical History: Hysterectomy Past Psychological History: No Psychological Hx Reported Smoking Status: Former smoker Past Alcohol Use History: None Reported Past Drug Use History: None Reported - Past Family History Mother Family Medical History: Cancer Additional Family Medical History / Comment(s): breast, uterine, thyroid cancer. Father History Unknown: Yes Medications and Allergies Home Medications Medication Instructions Recorded Confirmed Type 3-6-9 1 tab PO DAILY 01/25/22 01/29/22 History Ascorbic Acid/Collagen Hydr 1 cap PO DAILY 01/25/22 01/29/22 History [Collagen Plus Vit C Capsule] Benzonatate [Tessalon Perle] 200 mg PO TID PRN 01/25/22 01/29/22 History Cholecalciferol [Vitamin D3 (25 25 mcg PO DAILY 01/25/22 01/29/22 History Mcg = 1000 Iu)] Cyanocobalamin (Vitamin B-12) 1,000 mcg PO DAILY 01/25/22 01/29/22 History [Vitamin B-12] Glimepiride [Amaryl] 4 mg PO AC-BID 01/25/22 01/29/22 History Ibuprofen [Motrin Ib] 400 mg PO HS PRN 01/25/22 01/29/22 History carvediloL [Coreg] 6.25 mg PO BID 01/25/22 01/29/22 History hydroCHLOROthiazide [Hydrodiuril] 25 mg PO DAILY 01/25/22 01/29/22 History Albuterol Inhaler [Ventolin Hfa 2 puff INHALATION RT-QID PRN #8 gm 01/26/22 01/29/22 Rx Inhaler] Immune Support 1 tab PO TID 01/29/22 01/29/22 History predniSONE See Taper PO DIRECTED 12 Days 01/30/22 Rx #30 tab Allergies Allergy/AdvReac Type Severity Reaction Status Date / Time Iodinated Contrast Media Allergy Swelling Verified 10/24/23 01:20 [Iodinated Contrast Media - IV Dye] levofloxacin [From Levaquin] Allergy Swelling Verified 10/24/23 01:20 lisinopril Allergy Cough Verified 10/24/23 01:20 Physical Exam Vitals: Vital Signs Temp Pulse Resp BP Pulse Ox 10/24/23 03:53 70 20 180/74 97 10/24/23 02:17 70 23 184/90 98 10/24/23 01:15 97.7 F 77 24 174/100 99 Intake and Output 10/23/23 10/23/23 10/24/23 14:59 22:59 06:59 Other: Weight 81.647 kg Results CBC & Chem 7: 10/24/23 02:22 10/24/23 02:22 Labs: Abnormal Lab Results - Last 24 Hours (Table) 10/24/23 10/24/23 Range/Units 02:22 02:22 WBC 11.9 H (3.8-10.6) k/uL Neutrophils # 9.0 H (1.3-7.7) k/uL Monocytes # 1.1 H (0-1.0) k/uL Sodium 129 L (137-145) mmol/L Potassium 3.2 L (3.5-5.1) mmol/L Chloride 85 L (98-107) mmol/L Carbon Dioxide 35 H (22-30) mmol/L Creatinine 0.39 L (0.52-1.04) mg/dL Glucose 187 H (74-99) mg/dL
--- NOTE | 2023-10-24 05:59 | XR ---
EXAMINATION TYPE: XR chest 2V DATE OF EXAM: 10/24/2023 COMPARISON: Chest x-ray and CT chest January 29, 2022 HISTORY: Rule out pneumonia. Shortness of breath. TECHNIQUE: Frontal and lateral views of the chest are obtained. FINDINGS: Mild underlying emphysematous changes redemonstrated. There is no new suspicious focal air space opacity, pleural effusion, or pneumothorax seen. The cardiac silhouette size is stable and wi thin normal limits. The osseous structures are intact. IMPRESSION: Chronic emphysematous change without new acute pulmonary process.
[2023-10-24 06:55] VITALS: TEMP 98.7
[2023-10-24 07:42] LABS: Glucose,Whole Blood 274 mg/dL (70-110)
[2023-10-24] MEDS: INSULIN ASPART (NovoLOG) 100 UNIT/ML VIAL SQ SCH ×2 (07:48→12:31)
[2023-10-24] MEDS ORDERED: IPRATROPIUM-ALBUTEROL 3 ML NEB INHALATION SCH (08:00)
[2023-10-24] MEDS ORDERED: methylPREDNISolone SOD SUCCI 125 MG/2 ML VIAL IV SCH (08:00)
[2023-10-24] MEDS ORDERED: ENOXAPARIN 40 MG/0.4 ML SYRINGE SQ SCH (09:00)
[2023-10-24] MEDS ORDERED: carvediloL 6.25 MG TAB PO SCH (09:00)
[2023-10-24] MEDS ORDERED: hydroCHLOROthiazide 25 MG TAB PO SCH (09:00)
[2023-10-24] MEDS: ALBUTEROL HFA INHALER INHALATION SCH ×2 (09:04→12:53)
[2023-10-24 10:55] VITALS: BP 135/82; PULSE 98; RESP 38
[2023-10-24] MEDS ORDERED: ACETAMINOPHEN TAB 325 MG TAB PO PRN (10:58)
[2023-10-24 12:25] LABS: Glucose,Whole Blood 311 mg/dL (70-110)
--- NOTE | 2023-10-24 13:07 | P.DS ---
Providers Date of admission: 10/24/23 04:12 Expected date of discharge: 10/24/23 Attending physician: Miranda Machado MD Primary care physician: HAWK Alston Hospital Course: Patient unhappy with room and accomodation arrangements. Left AMA. Patient Condition at Discharge: Undetermined Plan - Discharge Summary New Discharge Prescriptions: No Action hydroCHLOROthiazide [Hydrodiuril] 25 mg PO DAILY carvediloL [Coreg] 6.25 mg PO BID Glimepiride [Amaryl] 4 mg PO BID Ibuprofen [Motrin] 800 mg PO Q8H PRN PRN Reason: Pain Amoxic-Pot Clav 875-125Mg [Augmentin 875-125] 1 tab PO Q12HR Acetaminophen Tab [Tylenol Tab] 500 mg PO Q6H PRN PRN Reason: Pain Discharge Medication List Glimepiride [Amaryl] 4 mg PO BID 01/25/22 [History] carvediloL [Coreg] 6.25 mg PO BID 01/25/22 [History] hydroCHLOROthiazide [Hydrodiuril] 25 mg PO DAILY 01/25/22 [History] Acetaminophen Tab [Tylenol Tab] 500 mg PO Q6H PRN 10/24/23 [History] Amoxic-Pot Clav 875-125Mg [Augmentin 875-125] 1 tab PO Q12HR 10/24/23 [History] Ibuprofen [Motrin] 800 mg PO Q8H PRN 10/24/23 [History] Follow up Appointment(s)/Referral(s): Arpita Bose NPC [Primary Care Provider] - 1-2 days
[2023-10-25] MEDS ORDERED: AZITHROMYCIN 500 MG TAB PO SCH (09:00)
== END 2023-10-24 13:33 | disposition left against medical advice (07) ==
LOC: EC 01:12 → 6NMEDSUR 04:12
PROVIDERS: ADMIT Internal Medicine; ATTEND Internal Medicine
DX: U07.1 COVID-19 (principal); J12.82 Pneumonia due to coronavirus disease 2019; Z53.29 Procedure and treatment not carried out because of patient's decision for other reasons; J44.9 Chronic obstructive pulmonary disease, unspecified; E11.9 Type 2 diabetes mellitus without complications; I10 Essential (primary) hypertension; E87.1 Hypo-osmolality and hyponatremia; E87.3 Alkalosis; Z87.891 Personal history of nicotine dependence; Z79.84 Long term (current) use of oral hypoglycemic drugs; Z79.899 Other long term (current) drug therapy; Z88.1 Allergy status to other antibiotic agents
CPT/HCPCS: 96376; 96365; 96366; 96372; 96375; 99285; 36415; 94640 ×2; 84300; 83930; 80053; 87449; 83735; 84484; 85025; 85610; 85730; 83935; 87040; 84145; 87636; 71046; G0378 ×2; J2930; J0456; J0696; J1650

== ENCOUNTER → 2024-02-05 | Outpatient (CLI) | payer MEDICARE ==
--- NOTE | 2024-02-06 18:39 | MM ---
Reason for Exam: Screening (asymptomatic). Last screening mammogram was performed 12 month(s) ago. Patient History: Menarche at age 14. First Full-Term at age 21. Left ovary removed at age 43. Right ovary removed at age 43. Hysterectomy at age 43. Postmenopausal. Hormonal Contraceptives for 1 year, 6 months. Mother had breast cancer, age 50. Risk Values: Linh 5 year model risk: 3.3%. NCI Lifetime model risk: 6.3%. Prior Study Comparison: 12/01/2020 Bilateral Screening Mammogram, [facility]. 01/27/2022 Bilateral Screening Mammogram, [facility]. 01/31/2023 Bilateral MG 3D screening mammo w/cad, [facility]. Tissue Density: There are scattered areas of fibroglandular density. Findings: Analyzed By CAD. The pattern is symmetrical. No significant interval change is evident. Scattered benign-appearing calcifications are present. Chronic nodularity is within the right breast. No suspicious groups of microcalcifications, spiculated or lobular masses, architectural distortion or other secondary signs of malignancy are mammographically apparent. Overall Assessment: Benign, BI-RAD 2 Management: Screening Mammogram of both breasts in 1 year. A negative mammogram report should not preclude additional follow up of suspicious palpable abnormalities. Patient should continue monthly self breast exam. A clinical breast exam by your physician is recommended on an annual basis and results should be correlated with mammographic findings. Note on Linh scores and lifetime risk: 1. A Linh score greater than 3% is considered moderate risk. If this is the case, consider specialist referral to assess eligibility for a risk reducing agent. 2. If overall lifetime risk for the development of breast cancer is 20% or higher, the patient may qualify for future screening with alternating mammogram and breast MRI. Electronically signed and approved by: Vladislav Cortez D.O. Radiologis
== END | disposition home or self-care (01) ==
LOC: RADMAMWWP 11:20
PROVIDERS: ATTEND Family Medicine
DX: Z12.31 Encounter for screening mammogram for malignant neoplasm of breast (principal); Z78.0 Asymptomatic menopausal state; Z80.3 Family history of malignant neoplasm of breast
CPT/HCPCS: 77063; 77067